=== PATIENT | male | born 1995 | race Caucasian/White ===

== ENCOUNTER 2022-02-20 06:38 | Emergency (ER) | payer MEDICAID, SELFPAY ==
[2022-02-20 06:49] VITALS: BP 90/60; PULSE 104; RESP 22; TEMP 37.3; O2SAT 100; BMI 20.5
[2022-02-20 07:27] LABS: Hematocrit 46.6 % (42.0-52.0); Hemoglobin 15.5 g/dl (14.0-18.0); Mean Corpuscular HGB Conc 33.3 g/dl (31.0-36.0); Mean Corpuscular Hemoglobin 28.7 pg (27.0-33.0); Mean Corpuscular Volume 86.1 fL (80.0-98.0); Mean Platelet Volume 9.6 fL (9.4-12.4); Platelet Count 187 X10*3/uL (160-400); Red Blood Count 5.41 X10*6/uL (4.60-5.80); White Blood Count 10.3 X10*3/uL (4.8-10.8)
[2022-02-20 07:50] LABS: Alanine Aminotransferase 11 U/L (0-40); Albumin Level 4.8 g/dL (3.5-5.0); Alkaline Phosphatase 88 U/L (39-117); Anion Gap 13 (12-20); Aspartate Amino Transferase 12 U/L (5-37); Bilirubin Total 0.5 mg/dL (0.0-1.0); Blood Urea Nitrogen 6 mg/dL (9-16); Calcium 9.5 mg/dL (8.4-10.2); Carbon Dioxide 28 mmol/L (22-29); Chloride 103 mmol/L (96-108); Creatinine Clr Calc Pharmacy 81.2; Estimated Glomerular Filt Rate > 60; Glucose Random 112 mg/dL (60-115); Lipase 17 U/L (8-78); Potassium 4.3 mmol/L (3.3-5.1); Sodium 140 mmol/L (135-145); Total Protein 7.4 g/dL (6.5-8.0)
[2022-02-20] MEDS: traMADoL HCL 50 MG TABLET PO (08:06)
--- NOTE | 2022-02-20 08:08 | ED_ITS ---
HPI - Back Pain/Injury General Chief Complaint: Abdominal Pain Stated Complaint: back pain; vomiting/food poision Time Seen by Provider: 02/20/22 07:58 Source: patient Mode of arrival: ambulatory Limitations: no limitations History of Present Illness HPI Narrative: Patient has a chronic back pain noticed low back pain for last few days no injury, no paresthesia. Also patient been vomiting since last night after eating burrito vomited 4 times at this time patient denies any significant nausea or diarrhea no significant abdominal pain Related Data Previous Rx's Medication Instructions Recorded tramadol 50 mg tablet 50 mg PO Q6H PRN pain #20 tabs 02/20/22 Allergies Allergy/AdvReac Type Severity Reaction Status Date / Time No Known Allergies Allergy Verified 02/20/22 06:54 Review of Systems Review of Systems: Yes all other systems are reviewed and are negative [facility] Social History Social History Advance Directives: No Advance Directives Information Provided: No Physical Exam Vital Signs: Vital Signs: Last Vital Signs Temp 99.1 F 02/20/22 06:49 Pulse 104 H 02/20/22 06:49 Resp 22 H 02/20/22 06:49 BP 90/60 02/20/22 06:49 Pulse Ox 100 02/20/22 06:49 O2 Del Method 02/20/22 06:49 BMI result Body Mass Index 20.5 Appearance: Alert. Oriented X3. No acute distress. Anxious ambulatory in steady gait ENT: Pharynx normal. Oral Mucosa moist Neck: Normal inspection. Neck supple. CVS: Normal heart rate and rhythm. Pulses normal. Respiratory: No respiratory distress. Equal air entry bilateral, no wheezing/rales/rhonchi Abdomen: Soft and nontender. Bowel sounds are present, no mass palpable, no CVA tenderness Skin: Skin warm and dry. Normal skin color. Normal skin turgor. back: Diffuse lumbar spine tenderness no focal tenderness SLR negative bilateral good range of movement Extremities: No lower extremity edema. No calf tenderness Neuro: Oriented X 3. No motor deficit. MDM - Back Pain/Injury MDM Narrative Medical decision making narrative: Patient has chronic back pain will discharge patient home on tramadol no signs of spinal cord involvement. Patient urine showed wbc's 10-14 with no bacteria nitrite negative patient denies any urinary symptoms advised patient to drink plenty of fluids pending further culture Lab Data Attestation: I reviewed the patient's lab results. Result diagrams: 02/20/22 07:20 02/20/22 07:20 Labs: Lab Results 02/20/22 02/20/22 02/20/22 Range/Units 07:20 07:20 08:32 WBC 10.3 (4.8-10.8) X10*3/uL RBC 5.41 (4.60-5.80) X10*6/uL Hgb 15.5 (14.0-18.0) g/dl Hct 46.6 (42.0-52.0) % MCV 86.1 (80.0-98.0) fL MCH 28.7 (27.0-33.0) pg MCHC 33.3 (31.0-36.0) g/dl RDW 12.0 (11.0-16.0) % Plt Count 187 (160-400) X10*3/uL MPV 9.6 (9.4-12.4) fL Absolute Nucleated RBC 0.000 (0.0-0.012) X10*3/uL Nucleated RBC % (auto) 0.0 (0.0-0.2) /100WBC Sodium 140 (135-145) mmol/L Potassium 4.3 (3.3-5.1) mmol/L Chloride 103 (96-108) mmol/L Carbon Dioxide 28 (22-29) mmol/L Anion Gap 13 (12-20) BUN 6 L (9-16) mg/dL Creatinine 1.07 (0.5-1.4) mg/dL Estim Creat Clear Calc 81.2 Estimated GFR > 60 Random Glucose 112 (60-115) mg/dL Calcium 9.5 (8.4-10.2) mg/dL Total Bilirubin 0.5 (0.0-1.0) mg/dL AST 12 (5-37) U/L ALT 11 (0-40) U/L Alkaline Phosphatase 88 (39-117) U/L Total Protein 7.4 (6.5-8.0) g/dL Albumin 4.8 (3.5-5.0) g/dL Lipase 17 (8-78) U/L Urine Color YELLOW Urine Appearance CLEAR Urine pH 6.0 (5.0-8.0) Ur Specific [place] <= 1.005 (1.005-1.025) Urine Protein NEG (NEG-TRACE) MG/DL Urine Glucose (UA) NEG (NEG) MG/DL Urine Ketones NEG (NEG) MG/DL Urine Blood NEG (NEG) Urine Nitrite NEG (NEG) Ur Leukocyte Esterase 1+ H (NEG) Urine RBC 0 (0) /HPF Urine WBC 10-14 H (0-4) /HPF Ur Squamous Epith Cells TRACE /LPF Urine Bacteria NONE /LPF COVID-19 (SHANA) (Negative) COVID-19 Clin Com 02/20/22 Range/Units 09:11 WBC (4.8-10.8) X10*3/uL RBC (4.60-5.80) X10*6/uL Hgb (14.0-18.0) g/dl Hct (42.0-52.0) % MCV (80.0-98.0) fL MCH (27.0-33.0) pg MCHC (31.0-36.0) g/dl RDW (11.0-16.0) % Plt Count (160-400) X10*3/uL MPV (9.4-12.4) fL Absolute Nucleated RBC (0.0-0.012) X10*3/uL Nucleated RBC % (auto) (0.0-0.2) /100WBC Sodium (135-145) mmol/L Potassium (3.3-5.1) mmol/L Chloride (96-108) mmol/L Carbon Dioxide (22-29) mmol/L Anion Gap (12-20) BUN (9-16) mg/dL Creatinine (0.5-1.4) mg/dL Estim Creat Clear Calc Estimated GFR Random Glucose (60-115) mg/dL Calcium (8.4-10.2) mg/dL Total Bilirubin (0.0-1.0) mg/dL AST (5-37) U/L ALT (0-40) U/L Alkaline Phosphatase (39-117) U/L Total Protein (6.5-8.0) g/dL Albumin (3.5-5.0) g/dL Lipase (8-78) U/L Urine Color Urine Appearance Urine pH (5.0-8.0) Ur Specific [place] (1.005-1.025) Urine Protein (NEG-TRACE) MG/DL Urine Glucose (UA) (NEG) MG/DL Urine Ketones (NEG) MG/DL Urine Blood (NEG) Urine Nitrite (NEG) Ur Leukocyte Esterase (NEG) Urine RBC (0) /HPF Urine WBC (0-4) /HPF Ur Squamous Epith Cells /LPF Urine Bacteria /LPF COVID-19 (SHANA) Positive A (Negative) COVID-19 Clin Com See Note Discharge Plan Discharge Clinical Impression: Back pain, COVID-19 Patient Disposition: Home, Self-Care Instructions: Chronic Back Pain (DC), COVID-19 (Coronavirus Disease 2019) (ED) Additional Instructions: Take pain medication as prescribed follow with PCP Report the ER if any urinary symptoms/fever Social distancing as advised Prescriptions: New tramadol 50 mg tablet 50 mg PO Q6H PRN (Reason: pain) Qty: 20 0RF Interventions: ED Discharge Assessment Last Done: 02/20/22 09:50 Discharge Date/Time: 02/20/22 09:50
[2022-02-20] MEDS: Ondansetron ODT 4 MG TAB.RAPDIS TRANSLINGU (08:27)
[2022-02-20 08:43] LABS: Appearance Urine CLEAR; Color Urine YELLOW; Glucose Urine UA NEG (NEG); Leukocyte Esterase Urine 1+ (NEG); Nitrite Urine NEG (NEG); Specific Gravity - Urine <= 1.005 (1.005-1.025); UACC Culture Trigger YES; Urine Blood NEG (NEG); Urine Ketones NEG (NEG); Urine Protein NEG (NEG-TRACE)
[2022-02-20] MEDS: Ketorolac Tromethamine 60 MG/2 ML VIAL IM (08:53)
[2022-02-20 08:59] LABS: RBC Urine 0 /HPF (0); Squamous Epithelial Cell Urine TRACE /LPF
[2022-02-20 09:25] LABS: COVID-19 Test Positive (Negative)
== END 2022-02-20 09:50 | disposition home or self-care (01) ==
PROVIDERS: Emergency Provider Internal Medicine
DX: U07.1 COVID-19 (principal); M54.50 Low back pain, unspecified
CPT/HCPCS: 36415; 80053; 81001; 83690; 85027; 87086; 87635; 96372; 99283; 99284; J1885

== ENCOUNTER 2024-05-07 08:01 | Emergency (ER) | payer SELFPAY ==
[2024-05-07 08:19] VITALS: BP 115/67; PULSE 75; RESP 16; TEMP 36.9; O2SAT 98; BMI 18.8
[2024-05-07 08:30] LABS: MANUAL DIFF FLAG NO
[2024-05-07 08:33] LABS: Basophils Absolute Auto 0.1 X10*3/uL (0.0-0.2); Basophils Percent Auto 0.8 % (0-2); Eosinophils Absolute Auto 0.1 X10*3/uL (0.0-0.4); Eosinophils Percent Auto 1.8 % (0-4); Hematocrit 45.1 % (42.0-52.0); Hemoglobin 15.3 g/dl (14.0-18.0); Imm Gran Abs Auto 0.01 X10*3/uL (0.00-0.03); Imm Gran Pct Auto 0.1 % (0.0-0.4); Lymphocytes Percent Auto 13.7 % (20-40); Mean Corpuscular HGB Conc 33.9 g/dl (31.0-36.0); Mean Corpuscular Hemoglobin 28.8 pg (27.0-33.0); Mean Corpuscular Volume 84.9 fL (80.0-98.0); Mean Platelet Volume 9.8 fL (9.4-12.4); Monocytes Percent Auto 14.6 % (2-11); Neutrophils Absolute Auto 4.9 x10*3/uL (2.0-8.3); Platelet Count 195 X10*3/uL (160-400); Red Blood Count 5.31 X10*6/uL (4.60-5.80); Red Cell Distribution Width 12.2 % (11.0-16.0); White Blood Count 7.1 X10*3/uL (4.8-10.8)
[2024-05-07 08:38] LABS: IDNOW Serial# 6674DD1D
[2024-05-07 08:39] LABS: COVID-19 Test Negative (Negative)
[2024-05-07 08:47] LABS: Alanine Aminotransferase 12 U/L (0-40); Albumin Level 4.4 g/dL (3.5-5.0); Alkaline Phosphatase 92 U/L (39-117); Anion Gap 11 (12-20); Aspartate Amino Transferase 18 U/L (5-37); Bilirubin Direct 0.2 mg/dL (0.0-0.5); Bilirubin Total 0.8 mg/dL (0.0-1.0); Blood Urea Nitrogen 11 mg/dL (9-16); Calcium 9.2 mg/dL (8.4-10.2); Carbon Dioxide 25 mmol/L (22-29); Chloride 109 mmol/L (96-108); Creatinine Clr Calc Pharmacy 101.3; Estimated Glomerular Filt Rate > 60; Glucose Random 88 mg/dL (60-115); Lipase 14 U/L (8-78); Potassium 3.8 mmol/L (3.3-5.1); Sodium 141 mmol/L (135-145); Total Protein 7.1 g/dL (6.5-8.0)
[2024-05-07 09:00] LABS: IDNOW Serial# 6674DD1D; Influenza A Negative (Negative); Influenza B2 Negative (Negative)
--- NOTE | 2024-05-07 09:02 | ED.NAVMDI ---
HPI - Nausea/Vomiting/Diarrhea General Chief complaint: Abdominal Pain Stated complaint: Vomiting/Body pains Time Seen by Provider: 05/07/24 08:43 Source: patient Mode of arrival: ambulatory Limitations: no limitations History of Present Illness ED Provider: LIZ HPI Narrative: 28 yo male with no sig PMH here with c/o 2 days of n/v and upper abdominal pain notes he feels weak and tired and today he was shaking. When he was throwing up his hands were shaking and he got nervous. Showed up to work today and his boss told him to get checked out. Denies travel, exposures, sick contacts. MD elicited complaint: nausea, vomiting and abdominal pain Onset (ago): day(s) (2) Description of vomiting: watery Associated nausea: Yes Associated abdominal pain: Yes Location of pain: epigastric Pain consistency: intermittent Severity: mild Quality: aching Exacerbating factors: eating Relieving factors: none Associated symptoms: loss of appetite, malaise and nausea/vomiting Related Data Previous Rx's ?Medication ?Instructions ?Recorded tramadol 50 mg tablet 50 mg PO Q6H PRN pain #20 tabs 02/20/22 ondansetron 4 mg disintegrating 4 mg PO Q8H PRN nausea and 05/07/24 tablet vomiting #20 tabs Allergies Allergy/AdvReac Type Severity Reaction Status Date / Time No Known Allergies Allergy Verified 05/07/24 08:22 Review of Systems Review of Systems: Constitutional : No Weight loss, No Fever, No Chills ENT/Mouth : No sore throat, No Rhinorrhea Eyes: No Swelling, No Redness Cardiovascular : No Chest Pain, No SOB, NoEdema Respiratory : No Cough, No Sputum, No Wheezing Gastrointestinal : Positive Nausea, Positive Vomiting, positive Diarrhea, positive abdominal Pain, No Hematochezia, No Melena Genitourinary : No Dysuria, No Urinary Frequency, No Hematuria, No Urgency Musculoskeletal : No joint pain, No Myalgias, No Joint Swelling Skin : No Skin Lesions, No rash Neuro : No Weakness, No Numbness, No Dizziness, No Headache Psych : No Anxiety/Panic, No Depression All other systems reviewed and are negative. Gastrointestinal: Gastrointestinal: Reports nausea PMFSH Past Medical History Attestation statement: The following information was validated with the patient. Source: old records reviewed Medical History (Updated 09/20/24 @ 09:45 by Tracey Henry DO) COVID-19 Social History Social History (Updated 05/07/24 @ 09:38 by Tracey Henry DO) Patient Tobacco Use Status: Tobacco use Unknown Advance Directives: No Advance Directives Information Provided: Yes Physical Exam Vital Signs: Vital Signs: Last Vital Signs Temp 98.5 F 05/07/24 08:19 Pulse 75 05/07/24 08:19 Resp 16 05/07/24 08:19 BP 115/67 05/07/24 08:19 Pulse Ox 98 05/07/24 08:19 O2 Del Method Room Air 05/07/24 08:19 BMI result Body Mass Index 18.8 Appearance: Alert. Oriented X3. No acute distress. Eyes: Pupils equal, round and reactive to light. ENT: Pharynx normal. Neck: Normal inspection. Neck supple. CVS: Normal heart rate and rhythm. Pulses normal. Respiratory: No respiratory distress. Breath sounds normal. Abdomen: Soft and nontender. Skin: Skin warm and dry. Normal skin color. Normal skin turgor. Extremities: No lower extremity edema. No calf ttp Neuro: Oriented X 3. No motor deficit. No sensory deficit. Medications Administered Generic Name Dose Route Start Last Admin Trade Name Freq PRN Reason Stop Dose Admin Sodium Chloride 1,000 mls @ 999 mls/hr 05/07/24 09:02 05/07/24 09:41 Ns IV 05/07/24 10:02 999 mls/hr .Q1H1M ONE Administration Discontinued Medications Generic Name Dose Route Start Last Admin Trade Name Freq PRN Reason Stop Dose Admin Famotidine 20 mg 05/07/24 09:02 05/07/24 09:41 Famotidine/Pf 20 Mg/2 Ml Vial IVPUSH 05/07/24 09:03 20 mg ONCE ONE Administration Ketorolac Tromethamine 15 mg 05/07/24 09:02 05/07/24 09:41 Ketorolac Tromethamine 15 Mg/Ml Vial IVPUSH 05/07/24 09:03 15 mg ONCE ONE Administration Ondansetron HCl 4 mg 05/07/24 09:02 05/07/24 09:41 Ondansetron Hcl 4 Mg/2 Ml Vial IVPUSH 05/07/24 09:03 4 mg ONCE ONE Administration Medical Decision Making Medical Decision Making MDM Narrative: 28 yo male with no sig PMH here with n/v and viral like illness has mild epigastric pain but no rebound or hernandez's sign. At this time basic labs, hydration and covid/strep swab ordered. IVF and supportive labs ordered. He is not toxic appearing. Differential Diagnosis Differential Diagnoses: The differential diagnosis associated with the presentation includes COVID, strep, viral panel, food toxicity Admission/Observation Consideration of admission/observation: Escalation of care including admission/observation considered feels better labs and VS reassuring Lab Data MDM Lab Attestation statement: I reviewed the patient's lab results. 05/07/24 08:27 05/07/24 08:27 Labs: Lab Results 05/07/24 05/07/24 Range/Units 08:14 08:27 WBC 7.1 (4.8-10.8) X10*3/uL RBC 5.31 (4.60-5.80) X10*6/uL Hgb 15.3 (14.0-18.0) g/dl Hct 45.1 (42.0-52.0) % MCV 84.9 (80.0-98.0) fL MCH 28.8 (27.0-33.0) pg MCHC 33.9 (31.0-36.0) g/dl RDW 12.2 (11.0-16.0) % Plt Count 195 (160-400) X10*3/uL MPV 9.8 (9.4-12.4) fL Immature Gran % (Auto) 0.1 (0.0-0.4) % Neut % (Auto) 69.0 (45-73) % Lymph % (Auto) 13.7 L (20-40) % [place] % (Auto) 14.6 H (2-11) % Eos % (Auto) 1.8 (0-4) % Baso % (Auto) 0.8 (0-2) % Lymph # (Auto) 1.0 L (1.2-4.9) X10*3/uL [place] # (Auto) 1.0 (0.1-1.2) X10*3/uL Eos # (Auto) 0.1 (0.0-0.4) X10*3/uL Baso # (Auto) 0.1 (0.0-0.2) X10*3/uL Abs Immat Gran (auto) 0.01 (0.00-0.03) X10*3/uL Absolute Neuts (auto) 4.9 (2.0-8.3) x10*3/uL Absolute Nucleated RBC 0.000 (0.0-0.012) X10*3/uL Nucleated RBC % (auto) 0.0 (0.0-0.2) /100WBC Sodium 141 (135-145) mmol/L Potassium 3.8 (3.3-5.1) mmol/L Chloride 109 H (96-108) mmol/L Carbon Dioxide 25 (22-29) mmol/L Anion Gap 11 L (12-20) BUN 11 (9-16) mg/dL Creatinine 0.77 (0.5-1.4) mg/dL Estim Creat Clear Calc 101.3 Estimated GFR > 60 Random Glucose 88 (60-115) mg/dL Calcium 9.2 (8.4-10.2) mg/dL Total Bilirubin 0.8 (0.0-1.0) mg/dL Direct Bilirubin 0.2 (0.0-0.5) mg/dL AST 18 (5-37) U/L ALT 12 (0-40) U/L Alkaline Phosphatase 92 (39-117) U/L Total Protein 7.1 (6.5-8.0) g/dL Albumin 4.4 (3.5-5.0) g/dL Lipase 14 (8-78) U/L COVID-19 (SHANA) Negative (Negative) COVID-19 Clin Com See Note Influenza Type A (LIZET) Negative (Negative) Influenza Type B (LIZET) Negative (Negative) Influenza A & B Note See Note Prescription Management I considered prescription management with: Other Discharge Plan Discharge Clinical Impression: Acute nausea with nonbilious vomiting, Acute viral syndrome Patient Disposition: Home, Self-Care Instructions: Acute Nausea and Vomiting (ED), Viral Syndrome (ED) Additional Instructions: labs reassuring, negative covid and flu negative strep bland diet for 2 days stay hydrated and drink plenty of water return for worsening symptoms or concerns. Prescriptions: New ondansetron 4 mg tablet,disintegrating 4 mg PO Q8H PRN (Reason: nausea and vomiting) Qty: 20 0RF No Action tramadol 50 mg tablet 50 mg PO Q6H PRN (Reason: pain) Qty: 20 0RF Stand Alone Forms: Work/School Release Print Language: Kittitian
[2024-05-07] MEDS: 0.9 % Sodium Chloride 1,000 ML 999 ML IV (09:41)
[2024-05-07] MEDS: Ketorolac Tromethamine 15 MG/ML VIAL IVPUSH (09:41)
[2024-05-07] MEDS: Famotidine/PF 20 MG/2 ML VIAL IVPUSH (09:41)
[2024-05-07] MEDS: ondansetron HCL 4 MG/2 ML VIAL IVPUSH (09:41)
[2024-05-07 10:08] LABS: IDNOW Serial# 08D9AD1C; Strep A Nucleic Acid Negative (Negative)
--- NOTE | 2024-05-07 10:52 | PC.NURSE ---
fluids have infused, patient reports feeling much better at this time s/p medication administration. PO challenging patient at this time
[2024-05-07 11:24] VITALS: BP 98/54; PULSE 68; RESP 14; TEMP 36.6; O2SAT 98
--- NOTE | 2024-05-07 11:25 | PC.NURSE ---
NO ACTIVE VOMITING AT TIME OF DISCHARGE. AGREEABLE WITH DISCHARGE PLAN
[2024-05-07 11:26] VITALS: BP 98/54; PULSE 68; RESP 14; TEMP 36.6; O2SAT 98
== END 2024-05-07 11:27 | disposition home or self-care (01) ==
PROVIDERS: Physician Assistant; Emergency Provider Emergency Medicine
DX: B34.9 Viral infection, unspecified (principal); R11.2 Nausea with vomiting, unspecified; M79.10 Myalgia, unspecified site; Z79.899 Other long term (current) drug therapy; Z11.52 Encounter for screening for COVID-19
CPT/HCPCS: 36415; 80048; 80076; 83690; 85025; 87502; 87635; 87651; 96361; 96374; 96375; 99283; 99284; J1885; J2405

== ENCOUNTER 2024-06-19 09:05 | Emergency (ER) | payer MEDICAID, SELFPAY ==
--- NOTE | ~2024-06-19 | CT_ITS ---
EXAMINATION: CT ABDOMEN AND PELVIS WITH CONTRAST CLINICAL INFORMATION: Abdominal pain, nausea and vomiting. COMPARISON: None available. TECHNIQUE: Multidetector volumetric images were obtained from the superior aspect of the liver through the pubic symphysis following administration 85 mL of Omnipaque 350 intravenous contrast. Sagittal and coronal reformatted images were obtained on the technologist's workstation. Oral contrast: No This CT examination was performed using dose optimization techniques as appropriate, variously including the following: *Automated exposure control *Adjustment of mA and/or kV according to patient size (this includes techniques or standardized protocols for targeted exams where dose is matched to indication/reason for exam; i.e. extremities or head) *Use of iterative reconstruction technique DLP: 251 mGy-cm FINDINGS: LUNG BASES: The visualized lung bases are unremarkable. LIVER, GALLBLADDER, AND BILIARY TREE: The liver is normal in size, shape, and attenuation. A few too small to characterize hypodensities, for example in the caudate lobe image 14 and posterior right hepatic lobe image 18, series 3 that are statistically in favor to represent cysts or hemangiomas in a patient of this age. No biliary ductal dilatation is present. The gallbladder is unremarkable with no evidence of radiopaque gallstones, gallbladder wall thickening, or obvious pericholecystic inflammatory changes. PANCREAS: Unremarkable. SPLEEN: Unremarkable. ADRENAL GLANDS: Unremarkable. KIDNEYS AND URETERS: The kidneys are normal in size, shape, and attenuation. No hydronephrosis, hydroureter, or calculi seen. No perinephric stranding. BLADDER: Unremarkable. GASTROINTESTINAL TRACT: The esophagus stomach and the small bowel are nondilated. The appendix is not well seen, though there are no regional inflammatory changes to suspect acute appendicitis. No pericolonic inflammatory changes. No evidence of bowel obstruction. ABDOMINAL WALL: No significant hernia is appreciated. LYMPH NODES: Limited evaluation due to paucity of intra-abdominal fat, within limitations no discrete adenopathy seen. VASCULAR: Normal caliber of the abdominal aorta. The main portal vein and SMV are patent. PELVIC VISCERA: Unremarkable. OSSEOUS STRUCTURES: No acute or aggressive appearing osseous findings. CT/CT abdomen pelvis w IV con IMPRESSION: No acute abdominal or pelvic abnormalities to explain the patient's symptoms. Electronically signed by: Kristine Purcell MD 06/19/2024 11:18 AM EDT
[2024-06-19 09:13] VITALS: BP 120/73; BP 122/64; PULSE 75; PULSE 77; RESP 21; TEMP 36.8; O2SAT 95; O2SAT 99; BMI 19.1
[2024-06-19 09:20] VITALS: BP 120/73; PULSE 75; RESP 21; TEMP 36.8; O2SAT 95
--- NOTE | 2024-06-19 09:27 | ED.GENADULT ---
HPI - General Adult General Chief complaint: Nausea/Vomiting/Diarrhea Stated complaint: ABD PAIN,N/V S/P MARIJUANA & CRACK USE T-1 PER EMS Time Seen by Provider: 06/19/24 09:25 Source: patient Mode of arrival: ambulatory Limitations: no limitations History of Present Illness ED Provider: Michelle SOLIMAN HPI narrative: 28-year-old male presents with nausea, vomiting, abdominal pain status post smoking crack mixed with marijuana last night around midnight he reports is the 1st time he did this. He reports he was also drinking. He reports he feels terrible. Denies recent sick contacts or different foods. Denies chest pain, shortness breath, fevers, chills, headache, vision changes, dizziness, weakness. He denies opiate use. Related Data Previous Rx's ?Medication ?Instructions ?Recorded tramadol 50 mg tablet 50 mg PO Q6H PRN pain #20 tabs 02/20/22 ondansetron 4 mg disintegrating 4 mg PO Q8H PRN nausea and 05/07/24 tablet vomiting #20 tabs ondansetron HCl 4 mg tablet 4 mg PO Q8H PRN nausea and 06/19/24 vomiting #14 tabs Allergies Allergy/AdvReac Type Severity Reaction Status Date / Time No Known Allergies Allergy Verified 06/19/24 09:20 Review of Systems Review of Systems: Yes all other systems are reviewed and are negative PMFSH Past Medical History Attestation statement: The following information was validated with the patient. Source: old records reviewed and nursing notes reviewed Medical History (Updated 06/19/24 @ 11:06 by LORRAINE Vogt) COVID-19 Social History Social History (Updated 05/07/24 @ 09:38 by Tracey Henry DO) Patient Tobacco Use Status: Tobacco use Unknown Smoked in Last 30 Days: Yes Use of substances other than those prescribed or required for medical reasons: Yes Substance Use Type: Crack/Cocaine and Marijuana Substance Use Frequency: Daily Substance Use Frequency Other:: Daily MJ use, first time using crack 06/18/24 Last Used Substance: Days (ago) Advance Directives: No Advance Directives Information Provided: Yes Do you have a plan to hurt others: No Plan Physical Exam ED Vital Signs: Vital Signs - 24 hr 06/19/24 09:13 06/19/24 09:20 06/19/24 10:20 Temperature 98.2 F 98.2 F 98.1 F Pulse Rate 75 75 73 Respiratory Rate 21 H 21 H 20 Blood Pressure 120/73 120/73 122/75 Pulse Oximetry 95 95 97 Oxygen Delivery Method Room Air Room Air Room Air BMI result Body Mass Index 19.1 vss Appearance: Alert.? Oriented X3.? No acute distress.? Head: Normocephalic, atraumatic, no step-offs or deformities Eyes: Pupils equal, round and reactive to light.? CVS: Normal heart rate and rhythm.? Pulses normal.? Respiratory: No respiratory distress.? Breath sounds normal.? Abdomen: Soft and diffuse tenderness.? Skin: Skin warm and dry.? Normal skin color.? Normal skin turgor.? Extremities: No lower extremity edema.? No calf ttp. 5/5 strength to bilateral upper and lower extremities Back: No midline tenderness, no C-spine tenderness, full range of motion, no CVA tenderness bilaterally Neuro: Oriented X 3.? No motor deficit.? No sensory deficit. CN 2-12 intact Course Reevaluation(s) Reevaluation #1: WBC 16.9 w/ left shift likely inflammatory from nausea, vomiting. Chemistry with no acute findings needing intervention. Normal lipase. UA without infection. Urine toxicology positive for cocaine, marijuana. Ethanol negative. Patient's CT abdomen and pelvis with no acute abdominal or pelvic abnormalities. Patient feeling better. He did report slight lightheadedness after receiving IV contrast however now he is feeling better. No longer nauseous. Will discharge home on Zofran. Not interested in detox. Not suicidal or homicidal . Educated patient on diagnosis and treatment plan, answered all question, patient verbalizes understanding. At this time patient will be discharged home, advised to return with new or worsening symptoms. Educated on worrisome signs and symptoms and when to return. At this time I feel comfortable discharge home. Time: 11:29 Medications Administered Discontinued Medications Generic Name Dose Route Start Last Admin Trade Name Deb PRN Reason Stop Dose Admin Iohexol 85 ml 06/19/24 10:37 06/19/24 10:39 Iohexol 350 Mg/Ml 100 Ml Infus..Btl IV 06/19/24 10:38 85 ml ONCE ONE Administration Ondansetron HCl 4 mg 06/19/24 09:26 06/19/24 10:29 Ondansetron Odt 4 Mg Tab.Angeldis TRANSLINGU 06/19/24 09:27 4 mg ONCE ONE Administration Medical Decision Making Medical Decision Making [facility] Narrative: 28-year-old male presents with nausea and vomiting status post using crack PE diffuse tenderness Hx and pe concerning for nausea and vomiting sp drug use. Unlikely acs, pe, pna, ards, metabolic derangments. Plan- labs, imaging, urine, ethanol Differential Diagnosis Differential Diagnoses: The differential diagnosis associated with the presentation includes (Hx and pe concerning for nausea and vomiting sp drug use. Unlikely acs, pe, pna, ards, metabolic derangments. ) Admission/Observation Consideration of admission/observation: Escalation of care including admission/observation considered Lab Data 06/19/24 09:29 06/19/24 09:29 Labs: Lab Results 06/19/24 06/19/24 Range/Units 09:29 10:19 WBC 16.9 H (4.8-10.8) X10*3/uL RBC 5.22 (4.60-5.80) X10*6/uL Hgb 15.0 (14.0-18.0) g/dl Hct 43.4 (42.0-52.0) % MCV 83.1 (80.0-98.0) fL MCH 28.7 (27.0-33.0) pg MCHC 34.6 (31.0-36.0) g/dl RDW 12.3 (11.0-16.0) % Plt Count 229 (160-400) X10*3/uL MPV 9.3 L (9.4-12.4) fL Immature Gran % (Auto) 0.3 (0.0-0.4) % Neut % (Auto) 88.8 H (45-73) % Lymph % (Auto) 4.4 L (20-40) % [place] % (Auto) 6.2 (2-11) % Eos % (Auto) 0.1 (0-4) % Baso % (Auto) 0.2 (0-2) % Lymph # (Auto) 0.8 L (1.2-4.9) X10*3/uL [place] # (Auto) 1.0 (0.1-1.2) X10*3/uL Eos # (Auto) 0.0 (0.0-0.4) X10*3/uL Baso # (Auto) 0.0 (0.0-0.2) X10*3/uL Abs Immat Gran (auto) 0.05 H (0.00-0.03) X10*3/uL Absolute Neuts (auto) 15.0 H (2.0-8.3) x10*3/uL Absolute Nucleated RBC 0.000 (0.0-0.012) X10*3/uL Nucleated RBC % (auto) 0.0 (0.0-0.2) /100WBC Sodium 141 (135-145) mmol/L Potassium 3.6 (3.3-5.1) mmol/L Chloride 107 (96-108) mmol/L Carbon Dioxide 26 (22-29) mmol/L Anion Gap 12 (12-20) BUN 7 L (9-16) mg/dL Creatinine 0.77 (0.5-1.4) mg/dL Estim Creat Clear Calc 103.1 Estimated GFR > 60 Random Glucose 120 H (60-115) mg/dL Calcium 9.9 D (8.4-10.2) mg/dL Magnesium 2.0 (1.6-2.6) mg/dL Total Bilirubin 0.6 (0.0-1.0) mg/dL AST 17 (5-37) U/L ALT 10 (0-40) U/L Alkaline Phosphatase 90 (39-117) U/L Total Protein 7.0 (6.5-8.0) g/dL Albumin 4.4 (3.5-5.0) g/dL Lipase 13 (8-78) U/L Urine Color Yellow Urine Appearance Clear Urine pH 7.0 (5.0-9.0) Ur Specific [place] 1.010 (1.005-1.025) Urine Protein Negative (Neg-Trace) mg/dL Urine Glucose (UA) Negative (Negative) mg/dL Urine Ketones Negative (Negative) mg/dL Urine Blood Negative (Negative) Urine Nitrite Negative (Negative) Ur Leukocyte Esterase Trace H (Negative) Urine RBC 0-2 (0-2) /HPF Urine WBC 0-5 (0-5) /HPF Ur Squamous Epith Cells 0-2 (0-2) /HPF Urine Bacteria None Seen (None Seen) Hyaline Casts 0-2 (0-2) /LPF Urine Opiates Screen Not Detected (Not Detect) Ur Buprenorphine Scrn Not Detected (Not Detect) ng/mL Ur Oxycodone Screen Not Detected (Not Detect) ng/mL Urine Methadone Screen Not Detected (Not Detect) ng/mL Urine Fentanyl Screen Not Detected (Not Detect) Ur Barbiturates Screen Not Detected (Not Detect) Ur Phencyclidine Scrn Not Detected (Not Detect) Ur Amphetamines Screen Not Detected (Not Detect) U Benzodiazepines Scrn Not Detected (Not Detect) Urine Cocaine Screen POSITIVE H (Not Detect) U Marijuana (THC) Screen POSITIVE H (Not Detect) Ethyl Alcohol < 10 mg/dL Discharge Plan Discharge Clinical Impression: Polysubstance abuse, Abdominal pain, Nausea & vomiting Patient Disposition: Home, Self-Care Instructions: Acute Nausea and Vomiting (ED), Abdominal Pain (ED), Polysubstance Abuse (ED) Additional Instructions: Take your medications as prescribed. If you were prescribed antibiotics today, it is important that you take your medication to their entirety, do not skip any doses, do not finish them early. Follow-up with your primary care provider this week. Return to the emergency department with new or worsening symptoms. Such as fevers, chills, chest pain, shortness of breath, nausea, vomiting, dizziness, headache, vision changes, lethargy In case of emergency call 911 CT/CT abdomen pelvis w IV con IMPRESSION: No acute abdominal or pelvic abnormalities to explain the patient's symptoms. Prescriptions: New ondansetron HCl 4 mg tablet 4 mg PO Q8H PRN (Reason: nausea and vomiting) Qty: 14 0RF No Action tramadol 50 mg tablet 50 mg PO Q6H PRN (Reason: pain) Qty: 20 0RF ondansetron 4 mg tablet,disintegrating 4 mg PO Q8H PRN (Reason: nausea and vomiting) Qty: 20 0RF Referrals: Physician,Unknown J [Primary Care Provider] - 2 days Stand Alone Forms: Work/School Release Print Language: Palestinian
[2024-06-19 09:33] LABS: MANUAL DIFF FLAG NO
[2024-06-19 09:34] LABS: Basophils Percent Auto 0.2 % (0-2); Eosinophils Percent Auto 0.1 % (0-4); Hematocrit 43.4 % (42.0-52.0); Imm Gran Abs Auto 0.05 X10*3/uL (0.00-0.03); Imm Gran Pct Auto 0.3 % (0.0-0.4); Lymphocytes Absolute Auto 0.8 X10*3/uL (1.2-4.9); Lymphocytes Percent Auto 4.4 % (20-40); Mean Corpuscular HGB Conc 34.6 g/dl (31.0-36.0); Mean Corpuscular Hemoglobin 28.7 pg (27.0-33.0); Mean Corpuscular Volume 83.1 fL (80.0-98.0); Mean Platelet Volume 9.3 fL (9.4-12.4); Monocytes Percent Auto 6.2 % (2-11); Neutrophils Percent Auto 88.8 % (45-73); Platelet Count 229 X10*3/uL (160-400); Red Blood Count 5.22 X10*6/uL (4.60-5.80); Red Cell Distribution Width 12.3 % (11.0-16.0); White Blood Count 16.9 X10*3/uL (4.8-10.8)
[2024-06-19 09:51] LABS: Alanine Aminotransferase 10 U/L (0-40); Albumin Level 4.4 g/dL (3.5-5.0); Alkaline Phosphatase 90 U/L (39-117); Anion Gap 12 (12-20); Aspartate Amino Transferase 17 U/L (5-37); Bilirubin Total 0.6 mg/dL (0.0-1.0); Blood Urea Nitrogen 7 mg/dL (9-16); Calcium 9.9 mg/dL (8.4-10.2); Carbon Dioxide 26 mmol/L (22-29); Chloride 107 mmol/L (96-108); Creatinine Clr Calc Pharmacy 103.1; Estimated Glomerular Filt Rate > 60; Glucose Random 120 mg/dL (60-115); Lipase 13 U/L (8-78); Potassium 3.6 mmol/L (3.3-5.1); Sodium 141 mmol/L (135-145)
[2024-06-19 09:56] LABS: Ethanol < 10 mg/dL
[2024-06-19 10:20] VITALS: BP 122/75; PULSE 73; RESP 20; TEMP 36.7; O2SAT 97
[2024-06-19 10:28] LABS: Appearance Urine Clear; Color Urine Yellow; Glucose Urine UA Negative (Negative); Leukocyte Esterase Urine Trace (Negative); Nitrite Urine Negative (Negative); UMIC TRIGGER UACC YES; Urine Blood Negative (Negative); Urine Ketones Negative (Negative); Urine Protein Negative (Neg-Trace)
[2024-06-19] MEDS: Ondansetron ODT 4 MG TAB.RAPDIS TRANSLINGU (10:29)
[2024-06-19 10:31] LABS: Bacteria Urine None Seen (None Seen); Hyaline Casts Urine 0-2 /LPF (0-2); RBC Urine 0-2 /HPF (0-2); Squamous Epithelial Cell Urine 0-2 /HPF (0-2); WBC Urine 0-5 /HPF (0-5)
--- NOTE | 2024-06-19 10:32 | PC.NURSE ---
Pt comes to ED today via EMS from home. C/o nausea and vomiting x1 day s/p 1st time crack use. Pt reports he uses MJ frequently, yesterday he mixed crack with his MJ and smoked it. Since then he has been experiencing nausea w/vomiting bile. He also c/o dehydration and severe muscle cramping. A&Ox3, VSS, afebrile. 20g placed to LAC Blood labs and urine spec completed; Pt to CT now Results pending.
[2024-06-19] MEDS: iohexoL 350 MG/ML 100 ML INFUS..BTL 85 ML IV (10:39)
[2024-06-19 10:58] LABS: Amphetamine Screen Urine Not Detected (Not Detect); Barbiturates, Urine Not Detected (Not Detect); Benzodiazepines Screen Urine Not Detected (Not Detect); Buprenorphine Scr Not Detected (Not Detect); Cannabinoid Screen Urine POSITIVE (Not Detect); Cocaine Screen Urine POSITIVE (Not Detect); Fentanyl, urine Not Detected (Not Detect); Methadone Screen, Urine Not Detected (Not Detect); Opiate Screen Urine Not Detected (Not Detect); Oxycodone Screen Urine Not Detected (Not Detect); Phencyclidine Screen Urine Not Detected (Not Detect)
[2024-06-19] MEDS: Ketorolac Tromethamine 15 MG/ML VIAL IVPUSH (11:40)
[2024-06-19 11:45] VITALS: BP 122/75; PULSE 73; RESP 20; TEMP 36.7; O2SAT 97
== END 2024-06-19 11:46 | disposition home or self-care (01) ==
PROVIDERS: Physician Assistant; Emergency Provider Emergency Medicine Emergency Medical Services
DX: F19.10 Other psychoactive substance abuse, uncomplicated (principal); R10.9 Unspecified abdominal pain; R11.2 Nausea with vomiting, unspecified; Z79.899 Other long term (current) drug therapy
CPT/HCPCS: 36415; 74177; 80053; 80307; 81001; 83690; 83735; 85025; 96374; 96375; 99284; J1885; Q9967

== ENCOUNTER 2024-08-23 21:29 | Emergency (ER) | payer MEDICAID, SELFPAY ==
[2024-08-23 21:45] VITALS: BP 122/76; PULSE 90; O2SAT 100
[2024-08-23 21:46] VITALS: BP 116/70; PULSE 91; RESP 25; TEMP 37.3; O2SAT 100; BMI 25.7
--- NOTE | 2024-08-23 21:48 | ED.GENADULT ---
HPI - General Adult General Chief complaint: General Medical Stated complaint: NEURO SYMPT: HEACHACHE DIZZY HAND CONTRACT, ECT Time Seen by Provider: 08/23/24 21:47 Source: patient Mode of arrival: EMS Limitations: no limitations History of Present Illness ED Provider: HPI narrative: patient has been having vomiting all day today comes here with contracted jaw and the hands feeling very anxious patient has a history of crack and marijuana use but denied any use today complaining of body spasm patient has also been coughing for last 1 week no other family member sick Related Data Previous Rx's ?Medication ?Instructions ?Recorded tramadol 50 mg tablet 50 mg PO Q6H PRN pain #20 tabs 02/20/22 ondansetron 4 mg disintegrating 4 mg PO Q8H PRN nausea and 05/07/24 tablet vomiting #20 tabs ondansetron HCl 4 mg tablet 4 mg PO Q8H PRN nausea and 06/19/24 vomiting #14 tabs benzonatate 200 mg capsule 200 mg PO TID PRN cough #30 caps 08/24/24 ondansetron 4 mg disintegrating 4 mg PO Q6-8H PRN nausea and 08/24/24 tablet vomiting #10 tabs Allergies Allergy/AdvReac Type Severity Reaction Status Date / Time No Known Allergies Allergy Verified 08/23/24 21:47 Review of Systems Review of Systems: Yes all other systems are reviewed and are negative [facility] Past Medical History Medical History COVID-19 Social History Social History Patient Tobacco Use Status: Tobacco use Unknown Substance Use Type: Crack/Cocaine and Marijuana Advance Directives: No Advance Directives Information Provided: No Do you have a plan to hurt others: No Plan Physical Exam ED Vital Signs: Vital Signs - 24 hr 08/23/24 21:46 08/24/24 00:19 Temperature 99.2 F 101.1 F H Pulse Rate 91 98 Respiratory Rate 25 H 20 Blood Pressure 116/70 104/57 L Pulse Oximetry 100 95 Oxygen Delivery Method Room Air Room Air BMI result Body Mass Index 25.7 Appearance: Alert. Oriented X3. anxious contacted hands Eyes: No pallor or ENT: Pharynx normal. Oral Mucosa moist Neck: Normal inspection. Neck supple. CVS: Normal heart rate and rhythm. Pulses normal. Respiratory: No respiratory distress. Equal air entry bilateral, no wheezing/rales/rhonchi Abdomen: Soft and nontender. Bowel sounds are present, no mass palpable, no CVA tenderness Skin: Skin warm and dry. Normal skin color. Normal skin turgor. Extremities: No lower extremity edema. No calf tenderness Neuro: Oriented X 3. No motor deficit. Medications Administered Discontinued Medications Generic Name Dose Route Start Last Admin Trade Name Freq PRN Reason Stop Dose Admin Sodium Chloride 1,000 mls @ 999 mls/hr 08/23/24 21:47 08/23/24 23:26 Ns IV 08/23/24 22:47 Infused .Q1H1M ONE Infusion Lorazepam 1 mg 08/23/24 22:45 08/23/24 22:48 Lorazepam 2 Mg/Ml Vial IVPUSH 08/23/24 22:46 1 mg STAT STA Administration Ondansetron HCl 4 mg 08/23/24 21:47 08/23/24 21:53 Ondansetron Hcl 4 Mg/2 Ml Vial IVPUSH 08/23/24 21:48 4 mg ONCE ONE Administration Prochlorperazine Edisylate 10 mg 08/23/24 22:45 08/23/24 22:48 Prochlorperazine Edisylate 10 Mg/2 Ml Vial IVPUSH 08/23/24 22:46 10 mg ONCE ONE Administration Medical Decision Making Medical Decision Making [facility] Narrative: Patient's influenza a with acute vomiting symptoms of influenza been there for last 1 week. Patient responded to IV fluids taking p.o. fluids discharge patient home advised the social distancing Lab Data [facility] Lab Attestation statement: I reviewed the patient's lab results. 08/23/24 21:58 08/23/24 21:58 Labs: Lab Results 08/23/24 08/23/24 Range/Units 21:58 22:27 WBC 6.1 (4.8-10.8) X10*3/uL RBC 5.20 (4.60-5.80) X10*6/uL Hgb 15.1 (14.0-18.0) g/dl Hct 43.7 (42.0-52.0) % MCV 84.0 (80.0-98.0) fL MCH 29.0 (27.0-33.0) pg MCHC 34.6 (31.0-36.0) g/dl RDW 12.1 (11.0-16.0) % Plt Count 185 (160-400) X10*3/uL MPV 9.6 (9.4-12.4) fL Immature Gran % (Auto) 0.2 (0.0-0.4) % Neut % (Auto) 73.4 H (45-73) % Lymph % (Auto) 4.9 L (20-40) % [place] % (Auto) 21.2 H (2-11) % Eos % (Auto) 0.0 (0-4) % Baso % (Auto) 0.3 (0-2) % Lymph # (Auto) 0.3 L (1.2-4.9) X10*3/uL [place] # (Auto) 1.3 H (0.1-1.2) X10*3/uL Eos # (Auto) 0.0 (0.0-0.4) X10*3/uL Baso # (Auto) 0.0 (0.0-0.2) X10*3/uL Abs Immat Gran (auto) 0.01 (0.00-0.03) X10*3/uL Absolute Neuts (auto) 4.5 (2.0-8.3) x10*3/uL Absolute Nucleated RBC 0.000 (0.0-0.012) X10*3/uL Nucleated RBC % (auto) 0.0 (0.0-0.2) /100WBC Smear Tech's Comments VERIFIED Sodium 140 (135-145) mmol/L Potassium 3.3 (3.3-5.1) mmol/L Chloride 109 H (96-108) mmol/L Carbon Dioxide 21 L (22-29) mmol/L Anion Gap 13 (12-20) BUN 9 (9-16) mg/dL Creatinine 0.93 (0.5-1.4) mg/dL Estim Creat Clear Calc 99.0 Estimated GFR > 60 Random Glucose 91 (60-115) mg/dL Calcium 8.6 D (8.4-10.2) mg/dL Magnesium 1.6 (1.6-2.6) mg/dL Total Bilirubin 0.3 (0.0-1.0) mg/dL AST 16 (5-37) U/L ALT 10 (0-40) U/L Alkaline Phosphatase 88 (39-117) U/L Total Protein 7.0 (6.5-8.0) g/dL Albumin 4.4 (3.5-5.0) g/dL Lipase 25 (8-78) U/L Influenza Type A (PCR) POSITIVE A (Negative) Influenza Type B (PCR) NEGATIVE (Negative) RSV RNA Qual (PCR) NEGATIVE (Negative) SARS-CoV-2 RNA (RT-PCR) NEGATIVE (Negative) Discharge Plan Discharge Clinical Impression: Gastroenteritis, Influenza A Patient Disposition: Home, Self-Care Instructions: Influenza (ED), Acute Nausea and Vomiting (ED) Additional Instructions: Drink plenty of fluids Medicine for nausea/vomiting as prescribed Cough drops as prescribed Follow with your PCP Prescriptions: New benzonatate 200 mg capsule 200 mg PO TID PRN (Reason: cough) Qty: 30 0RF ondansetron 4 mg tablet,disintegrating 4 mg PO Q6-8H PRN (Reason: nausea and vomiting) Qty: 10 0RF No Action tramadol 50 mg tablet 50 mg PO Q6H PRN (Reason: pain) Qty: 20 0RF ondansetron 4 mg tablet,disintegrating 4 mg PO Q8H PRN (Reason: nausea and vomiting) Qty: 20 0RF ondansetron HCl 4 mg tablet 4 mg PO Q8H PRN (Reason: nausea and vomiting) Qty: 14 0RF Print Language: Ivorian
[2024-08-23] MEDS: ondansetron HCL 4 MG/2 ML VIAL IVPUSH (21:53)
[2024-08-23] MEDS: 0.9 % Sodium Chloride 1,000 ML 999 ML IV (21:53)
[2024-08-23 22:03] LABS: Basophils Percent Auto 0.3 % (0-2); Hematocrit 43.7 % (42.0-52.0); Hemoglobin 15.1 g/dl (14.0-18.0); Imm Gran Abs Auto 0.01 X10*3/uL (0.00-0.03); Imm Gran Pct Auto 0.2 % (0.0-0.4); Lymphocytes Absolute Auto 0.3 X10*3/uL (1.2-4.9); Lymphocytes Percent Auto 4.9 % (20-40); MANUAL DIFF FLAG SCAN; Mean Corpuscular HGB Conc 34.6 g/dl (31.0-36.0); Mean Platelet Volume 9.6 fL (9.4-12.4); Monocytes Absolute Auto 1.3 X10*3/uL (0.1-1.2); Monocytes Percent Auto 21.2 % (2-11); Neutrophils Absolute Auto 4.5 x10*3/uL (2.0-8.3); Neutrophils Percent Auto 73.4 % (45-73); Platelet Count 185 X10*3/uL (160-400); Red Cell Distribution Width 12.1 % (11.0-16.0); SCAN SMEAR FLAG 1; White Blood Count 6.1 X10*3/uL (4.8-10.8)
--- NOTE | 2024-08-23 22:18 | PC.NURSE ---
pt biba from home a&ox4, respirations even and unlabored. pt reporting onset of nausea, vomiting, shortness of breath, chest pain and contractors of the hand and jaw. pt denies any sick contacts. pt noted to have high respirations of 25. vss. 18g placed in left ac by ems. provider at bedside, fluids and zofran administered at this time.
[2024-08-23 22:19] LABS: Alanine Aminotransferase 10 U/L (0-40); Albumin Level 4.4 g/dL (3.5-5.0); Alkaline Phosphatase 88 U/L (39-117); Anion Gap 13 (12-20); Aspartate Amino Transferase 16 U/L (5-37); Bilirubin Total 0.3 mg/dL (0.0-1.0); Blood Urea Nitrogen 9 mg/dL (9-16); Calcium 8.6 mg/dL (8.4-10.2); Carbon Dioxide 21 mmol/L (22-29); Chloride 109 mmol/L (96-108); Estimated Glomerular Filt Rate > 60; Glucose Random 91 mg/dL (60-115); Lipase 25 U/L (8-78); Magnesium 1.6 mg/dL (1.6-2.6); Potassium 3.3 mmol/L (3.3-5.1); Sodium 140 mmol/L (135-145)
[2024-08-23 22:36] LABS: SLIDE REVIEW VERIFIED
[2024-08-23] MEDS: Prochlorperazine Edisylate 10 MG/2 ML VIAL IVPUSH (22:48)
[2024-08-23] MEDS: LORazepam 2 MG/ML VIAL 1 MG IVPUSH (22:48)
[2024-08-23 23:10] LABS: Influenza A PCR POSITIVE (Negative); Influenza B PCR NEGATIVE (Negative); Resp Syncy Virus RNA Qual PCR NEGATIVE (Negative); SARS COV2 PCR INHOUSE NEGATIVE (Negative)
[2024-08-24 00:19] VITALS: BP 104/57; PULSE 98; RESP 20; TEMP 38.4; O2SAT 95
[2024-08-24] MEDS: Benzonatate 100 MG CAPSULE 200 MG PO (01:35)
[2024-08-24 01:41] VITALS: BP 90/53; PULSE 84; RESP 18; TEMP 37.6; O2SAT 98
[2024-08-24 01:46] VITALS: BP 90/53; PULSE 84; RESP 18; TEMP 37.6; O2SAT 98
== END 2024-08-24 01:47 | disposition home or self-care (01) ==
PROVIDERS: Emergency Provider Internal Medicine
DX: J10.1 Influenza due to other identified influenza virus with other respiratory manifestations (principal); K52.9 Noninfective gastroenteritis and colitis, unspecified; R05.9 Cough, unspecified; Z03.818 Encounter for observation for suspected exposure to other biological agents ruled out
CPT/HCPCS: 0241U; 36415; 80053; 83690; 83735; 85025; 96361; 96374; 96375; 99284; J0737; J2060; J2405

== ENCOUNTER 2025-01-24 18:15 | Emergency (ER) | payer MEDICAID, SELFPAY ==
[2025-01-24 18:35] VITALS: BP 101/59; PULSE 85; RESP 16; TEMP 36.9; O2SAT 98; BMI 18.9
[2025-01-24 18:46] VITALS: BP 105/61; PULSE 84; RESP 16; O2SAT 99
--- NOTE | 2025-01-24 18:50 | PC.NURSE ---
Patient presents after multiple life stressors in which she he found out that his live-in girlfriend was cheating on him. Vague SI statement made with no plan. Alert and oriented but sad. Respirations even and non-labored. Abdomen soft, non-tender with positive bowel sounds. Positive pedal pulses with no edema.
[2025-01-24 18:52] LABS: Basophils Percent Auto 0.2 % (0-2); Hematocrit 42.1 % (42.0-52.0); Hemoglobin 14.4 g/dl (14.0-18.0); Imm Gran Abs Auto 0.03 X10*3/uL (0.00-0.03); Imm Gran Pct Auto 0.2 % (0.0-0.4); Lymphocytes Absolute Auto 0.5 X10*3/uL (1.2-4.9); Lymphocytes Percent Auto 4.2 % (20-40); MANUAL DIFF FLAG SCAN; Mean Corpuscular HGB Conc 34.2 g/dl (31.0-36.0); Mean Corpuscular Hemoglobin 28.9 pg (27.0-33.0); Mean Corpuscular Volume 84.4 fL (80.0-98.0); Mean Platelet Volume 9.7 fL (9.4-12.4); Monocytes Absolute Auto 0.3 X10*3/uL (0.1-1.2); Monocytes Percent Auto 2.7 % (2-11); Neutrophils Absolute Auto 11.5 x10*3/uL (2.0-8.3); Neutrophils Percent Auto 92.7 % (45-73); Platelet Count 228 X10*3/uL (160-400); Red Blood Count 4.99 X10*6/uL (4.60-5.80); Red Cell Distribution Width 12.1 % (11.0-16.0); SCAN SMEAR FLAG 1; White Blood Count 12.4 X10*3/uL (4.8-10.8)
[2025-01-24 19:02] LABS: Alanine Aminotransferase 11 U/L (0-40); Albumin Level 4.7 g/dL (3.5-5.0); Alkaline Phosphatase 91 U/L (39-117); Anion Gap 12 (12-20); Aspartate Amino Transferase 23 U/L (5-37); Bilirubin Total 0.4 mg/dL (0.0-1.0); Blood Urea Nitrogen 8 mg/dL (9-16); Calcium 9.4 mg/dL (8.4-10.2); Carbon Dioxide 26 mmol/L (22-29); Chloride 109 mmol/L (96-108); Creatinine Clr Calc Pharmacy 93.5; Estimated Glomerular Filt Rate > 60; Ethanol < 10 mg/dL; Glucose Random 69 mg/dL (60-115); Lipase 11 U/L (8-78); Magnesium 1.9 mg/dL (1.6-2.6); Sodium 143 mmol/L (135-145)
[2025-01-24 19:03] LABS: Acetaminophen LAB < 3 mcg/mL (<30); Salicylate < 5.0 mg/dL (15-30)
[2025-01-24 19:26] LABS: SLIDE REVIEW VERIFIED
[2025-01-24 19:39] LABS: Appearance Urine Clear; Color Urine Yellow; Glucose Urine UA 500 mg/dL (Negative); Leukocyte Esterase Urine Small (1+) (Negative); Nitrite Urine Negative (Negative); Specific Gravity - Urine 1.025 (1.005-1.025); UMIC TRIGGER UA YES; Urine Blood Negative (Negative); Urine Ketones 15 mg/dL (Negative); Urine Protein 30 (1+) mg/dL (Neg-Trace)
[2025-01-24 19:46] LABS: Bacteria Urine None Seen (None Seen); RBC Urine 0-2 /HPF (0-2); WBC Urine 21-50 /HPF (0-5)
[2025-01-24 19:48] LABS: Amphetamine Screen Urine Not Detected (Not Detect); Barbiturates, Urine Not Detected (Not Detect); Benzodiazepines Screen Urine Not Detected (Not Detect); Buprenorphine Scr Not Detected (Not Detect); Cannabinoid Screen Urine POSITIVE (Not Detect); Cocaine Screen Urine POSITIVE (Not Detect); Fentanyl, urine Not Detected (Not Detect); Methadone Screen, Urine Not Detected (Not Detect); Opiate Screen Urine Not Detected (Not Detect); Oxycodone Screen Urine Not Detected (Not Detect); Phencyclidine Screen Urine Not Detected (Not Detect)
[2025-01-24] MEDS: Nicotine Polacrilex Lozenge 4 MG LOZENGE BUCCAL (21:40)
[2025-01-24] MEDS: LORazepam 1 MG TABLET 2 MG PO (22:14)
--- NOTE | 2025-01-25 01:55 | ED.PSYCH ---
HPI - Psych General Chief Complaint: Behavioral Concerns Stated Complaint: si with intent, cut on L wrist Time Seen by Provider: 01/24/25 18:25 Source: patient Limitations: no limitations History of Present Illness ED Provider: Maru Whittaker PA-C HPI Narrative: 29-year-old male presents with SI. Patient has intention to slit his wrist, he has a superficial cut over the left wrist. Patient states he has numerous psychosocial stressors, he just discovered that his significant other was involved in another relationship. Related Data Home Medications ?Medication ?Instructions ?Recorded ?Confirmed No Known Home Meds 01/24/25 01/24/25 Allergies Allergy/AdvReac Type Severity Reaction Status Date / Time No Known Allergies Allergy Verified 01/24/25 18:38 Review of Systems Review of Systems: Yes all other systems are reviewed and are negative Constitutional: Constitutional: Denies fatigue and Denies fever(s) Cardiovascular: Cardiovascular: Denies chest pain and Denies dyspnea Respiratory: Respiratory: Denies dyspnea Endocrine: Endocrine: Denies fatigue PMFSH Past Medical History Attestation statement: The following information was validated with the patient. Medical History COVID-19 Social History Social History Patient Tobacco Use Status: Tobacco use Unknown Smoked in Last 30 Days: Yes Substance Use Type: Marijuana Advance Directives: No Advance Directives Information Provided: No Physical Exam Vital Signs: Vital Signs: Last Vital Signs Temp 98.3 F 01/25/25 06:43 Pulse 72 01/25/25 06:43 Resp 17 01/25/25 06:43 BP 100/64 01/25/25 06:43 Pulse Ox 98 01/25/25 06:43 O2 Del Method Room Air 01/25/25 06:43 BMI result Body Mass Index 18.9 Const: Other: Alert well-appearing Orientation/consciousness: patient oriented x3 Resp: Effort & Inspection: normal respiratory effort Cardio: Other: Normal peripheral perfusion Skin: Other: Warm dry no rash Neuro: General: patient oriented x3, gait normal, no focal motor deficits and CN's II-XI intact bilaterally Psych: Other: Calm cooperative Course Reevaluation(s) Reevaluation #1: Speaking with the care team, the patient will be a respite bed search Reevaluation #2: Time: 04:03 Date: 01/25/25 Provider: LORRAINE Up Patient in physician observation for psychiatric evaluation.? No acute events reported overnight. No current complaints. VS stable.? Patient is in bed search status/pending CARE team evaluation. Will continue to monitor. Reevaluation #3: Time: 06:17 Date: 01/25/25 Provider: Micky Hayes MD Patient in physician observation for psychiatric evaluation.? Patient has been in the emergency department for 28 hours. No acute events reported overnight. No current complaints. VS stable.? Patient has been evaluated by the care team and disposition is respite bed search. Will continue to monitor. Additional Reevaluation(s): Time: 10:19 Date: 01/25/25 Provider: Micky Hayes MD Physician observation ended at 10:19 hours. Patient has been cleared for discharge by the CARE team and is going to be discharged home as opposed to go to a respite. Medications Administered Generic Name Dose Route Start Last Admin Trade Name Freq PRN Reason Stop Dose Admin Nicotine Polacrilex 4 mg 01/24/25 21:30 01/25/25 10:06 Nicotine Polacrilex Lozenge 4 Mg Lozenge BUCCAL 4 mg Q2H PRN Administration Nicotine Cravings Discontinued Medications Generic Name Dose Route Start Last Admin Trade Name Freq PRN Reason Stop Dose Admin Lorazepam 2 mg 01/24/25 22:10 01/24/25 22:14 Lorazepam 1 Mg Tablet PO 01/24/25 22:11 2 mg ONCE ONE Administration Medical Decision Making Medical Decision Making MDM Narrative: 29-year-old male presents with SI. Patient has intention to slit his wrist, he has a superficial cut over the left wrist. Patient states he has numerous psychosocial stressors, he just discovered that his significant other was involved in another relationship. No chronic issues History: Per patient I have considered the following differential diagnoses: SI, HI, decompensated psychiatric illness, drug/alcohol intoxication Plan: We will be screening basic labs, serum ethanol and drug screen, we will place a care team consult I have independently reviewed the following tests: Labs: Slight leukocytosis, not anemic, no electrolyte abnormality ethanol negative, drug screen positive for cocaine and marijuana Lab Data 01/24/25 18:41 01/24/25 18:41 Labs: Lab Results 01/24/25 01/24/25 Range/Units 18:41 19:28 WBC 12.4 H (4.8-10.8) X10*3/uL RBC 4.99 (4.60-5.80) X10*6/uL Hgb 14.4 (14.0-18.0) g/dl Hct 42.1 (42.0-52.0) % MCV 84.4 (80.0-98.0) fL MCH 28.9 (27.0-33.0) pg MCHC 34.2 (31.0-36.0) g/dl RDW 12.1 (11.0-16.0) % Plt Count 228 (160-400) X10*3/uL MPV 9.7 (9.4-12.4) fL Immature Gran % (Auto) 0.2 (0.0-0.4) % Neut % (Auto) 92.7 H (45-73) % Lymph % (Auto) 4.2 L (20-40) % [place] % (Auto) 2.7 (2-11) % Eos % (Auto) 0.0 (0-4) % Baso % (Auto) 0.2 (0-2) % Lymph # (Auto) 0.5 L (1.2-4.9) X10*3/uL [place] # (Auto) 0.3 (0.1-1.2) X10*3/uL Eos # (Auto) 0.0 (0.0-0.4) X10*3/uL Baso # (Auto) 0.0 (0.0-0.2) X10*3/uL Abs Immat Gran (auto) 0.03 (0.00-0.03) X10*3/uL Absolute Neuts (auto) 11.5 H (2.0-8.3) x10*3/uL Absolute Nucleated RBC 0.000 (0.0-0.012) X10*3/uL Nucleated RBC % (auto) 0.0 (0.0-0.2) /100WBC Smear Tech's Comments VERIFIED Sodium 143 (135-145) mmol/L Potassium 4.0 D (3.3-5.1) mmol/L Chloride 109 H (96-108) mmol/L Carbon Dioxide 26 (22-29) mmol/L Anion Gap 12 (12-20) BUN 8 L (9-16) mg/dL Creatinine 0.83 (0.5-1.4) mg/dL Estim Creat Clear Calc 93.5 Estimated GFR > 60 Random Glucose 69 (60-115) mg/dL Calcium 9.4 D (8.4-10.2) mg/dL Magnesium 1.9 (1.6-2.6) mg/dL Total Bilirubin 0.4 (0.0-1.0) mg/dL AST 23 (5-37) U/L ALT 11 (0-40) U/L Alkaline Phosphatase 91 (39-117) U/L Total Protein 7.0 (6.5-8.0) g/dL Albumin 4.7 (3.5-5.0) g/dL Lipase 11 (8-78) U/L Urine Color Yellow Urine Appearance Clear Urine pH 6.0 (5.0-9.0) Ur Specific [place] 1.025 (1.005-1.025) Urine Protein 30 (1+) H (Neg-Trace) mg/dL Urine Glucose (UA) 500 H (Negative) mg/dL Urine Ketones 15 (Negative) mg/dL Urine Blood Negative (Negative) Urine Nitrite Negative (Negative) Ur Leukocyte Esterase Small (1+) H (Negative) Urine RBC 0-2 (0-2) /HPF Urine WBC 21-50 H (0-5) /HPF Ur Squamous Epith Cells 3-5 (0-2) /HPF Urine Bacteria None Seen (None Seen) Hyaline Casts 3-5 (0-2) /LPF Salicylates < 5.0 L (15-30) mg/dL Urine Opiates Screen Not Detected (Not Detect) Ur Buprenorphine Scrn Not Detected (Not Detect) ng/mL Ur Oxycodone Screen Not Detected (Not Detect) ng/mL Urine Methadone Screen Not Detected (Not Detect) ng/mL Urine Fentanyl Screen Not Detected (Not Detect) Acetaminophen < 3 (<30) mcg/mL Ur Barbiturates Screen Not Detected (Not Detect) Ur Phencyclidine Scrn Not Detected (Not Detect) Ur Amphetamines Screen Not Detected (Not Detect) U Benzodiazepines Scrn Not Detected (Not Detect) Urine Cocaine Screen POSITIVE H (Not Detect) U Marijuana (THC) Screen POSITIVE H (Not Detect) Ethyl Alcohol < 10 mg/dL Discharge Plan Discharge Clinical Impression: Suicidal ideation Patient Disposition: Home, Self-Care Additional Instructions: Please follow the care team instructions. Continue to make your medications as prescribed Follow-up with your doctor in 2 days.Please return to the emergency department if your symptoms get worse or if you develop any symptoms that are concerning to you. You were seen in our Emergency Department today for treatment of a behavioral health issue. It is important after your visit that you follow up with either your behavioral health provider or a primary care doctor within 7 days.? If you have trouble finding a therapist you can reach out to [address] [phone] The National Suicide and Crisis Lifeline can be reached 7 days a week 24 hours a day.? Call 988 to speak with someone.? Return for any worsening symptoms or concerns such as thoughts of self harm or harm to others. Please call 911 if you feel your mental health is worsening.? Prescriptions: No Action No Known Home Meds Print Language: Maori
[2025-01-25 06:43] VITALS: BP 100/64; PULSE 72; RESP 17; TEMP 36.8; O2SAT 98
--- NOTE | 2025-01-25 07:17 | PC.NURSE ---
29-year-old male presents with SI. Patient has intention to slit his wrist, he has a superficial cut over the left wrist. Patient states he has numerous psychosocial stressors, he just discovered that his significant other was involved in another relationship. Tox screen positive for marijuana and cocaine. Patient resting comfortably at this time. Respirations even and non-labored. Plan for transition to a respite bed.
--- NOTE | 2025-01-25 08:55 | MHC.CARE ---
Called [facility] to follow up on the [facility] referral sent for this pt. [facility] reports that they have no adult beds available today.
--- NOTE | 2025-01-25 09:38 | MHC.CARE ---
Pt's original disposition was for [facility] however [facility] do not have open beds. Pt declined to be referred and F/U in the community and advocated for D/C. There is no imminent risk and Pt denies SI, HI, and A/V/H. Pt will be referred to OP services at [facility].
--- NOTE | 2025-01-25 10:00 | MHC.EDTECH ---
patient ambulated to bathroom, to shower,AM care done RN aware
[2025-01-25] MEDS: Nicotine Polacrilex Lozenge 4 MG LOZENGE BUCCAL (10:06)
[2025-01-25 10:34] VITALS: BP 100/64; PULSE 72; RESP 17; TEMP 36.8; O2SAT 98
--- NOTE | 2025-01-25 15:06 | MHC.CARE ---
Referral to [facility] complete
== END 2025-01-25 10:49 | disposition home or self-care (01) ==
PROVIDERS: Physician Assistant Medical; Emergency Provider Internal Medicine
DX: S61.512A Laceration without foreign body of left wrist, initial encounter (principal); R45.851 Suicidal ideations; F43.9 Reaction to severe stress, unspecified; X78.1XXA Intentional self-harm by knife, initial encounter; Y93.9 Activity, unspecified; Y92.9 Unspecified place or not applicable; Y99.8 Other external cause status; Z51.81 Encounter for therapeutic drug level monitoring; Z79.899 Other long term (current) drug therapy
CPT/HCPCS: 36415; 80053; 80143; 80179; 80307; 81001; 83690; 83735; 85025; 99284; S9485

== ENCOUNTER 2025-03-28 11:20 | Emergency (ER) | payer MEDICAID, SELFPAY ==
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
[2025-03-28 12:16] VITALS: BP 128/58; PULSE 82; RESP 18; TEMP 36.7; O2SAT 97; BMI 20.4
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
[2025-03-28 17:08] VITALS: BP 118/84; PULSE 75; RESP 16; TEMP 36.8; O2SAT 97
--- OUTSIDE RECORDS SUMMARY | 2025-03-28 17:14 | XMS_ITS | Clinical Summary ---
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 Name Role Phone Unavailable Primary Care Provider Unavailabl e Social History Tobacco Use Types Packs/Day Years Used Date Smoking Tobacco: Never Assessed Sex and Gender Information Value Date Recorded Sex Assigned at Not on file Legal Sex Male 11:30 AM EST Gender Identity Not on file Sexual Orientation Not on file Plan of Treatment Health Maintenance Due Date Last Done Comments Depression Screening 1996 HIV Screening 1996 SDOH Screening 1996 Disability Screening 1996 Alcohol/Substance Use Screening 2008 Tobacco Screening 2008 Family Planning (PISQ) 2011 HPV Vaccines (1 - Male 3-dos e series) 2011 Hepatitis C Screening 2014 DTaP/Tdap/Td Vaccines (1 - Tdap) 2015 Hepatitis B Vaccines (1 of 3 - 19+ 3-dose series) 2015 COVID-19 Vaccine (1 - 2023-2 5 season) 2024 Influenza Vaccine (#1) 2025 Zoster Vaccines (1 of 2) 2046 RSV Patients and Pa tients Aged 60 years or older (1 - 1-dose 75+ series) 2071 HIB Vaccines Aged Out No longer eligi ble based on patient's age to complete this topic Hepatitis A Vaccines Aged Out No long er eligible based on patient's age to complete this topic IPV Vaccines Aged Out No longer eligi ble based on patient's age to complete this topic Meningococcal B Vaccine Aged Out No l onger eligible based on patient's age to complete this topic Meningococcal Vaccine Aged Out No atiya fidel eligible based on patient's age to complete this topic Pneumococcal Vaccine: Pediat rics (0 to 5 Years) and At-Risk Patients (6 to 49) Years Aged Out No longer eligible b ased on patient's age to complete this topic RSV under 20 months Aged Out No longe r eligible based on patient's age to complete this topic Rotavirus Vaccines Aged Out No longer eligible based on patient's age to complete this topic
[2025-03-28 18:51] VITALS: BP 118/84; PULSE 75; RESP 16; TEMP 36.8; O2SAT 97
== END 2025-03-28 18:51 | disposition home or self-care (01) ==
PROVIDERS: Emergency Provider Emergency Medicine
DX: S62.002A Unspecified fracture of navicular [scaphoid] bone of left wrist, initial encounter for closed fracture (principal); V29.888A Rider (driver) (passenger) of other motorcycle injured in other specified transport accidents, initial encounter; L03.818 Cellulitis of other sites; Y92.410 Unspecified street and highway as the place of occurrence of the external cause; Y93.89 Activity, other specified; Y99.8 Other external cause status
CPT/HCPCS: 29125; 73060; 73090; 73130; 96372; 99283; 99284; J1885

== ENCOUNTER → 2025-03-28 12:22 | Outpatient (BNV) | payer MEDICAID, SELFPAY | PROVIDERS: Visit Provider Radiology Diagnostic Radiology | DX: M79.642 Pain in left hand (principal); M79.602 Pain in left arm | CPT/HCPCS: 73060; 73090; 73130 ==

== ENCOUNTER 2025-04-01 18:09 | Emergency (ER) | payer MEDICAID, SELFPAY ==
--- NOTE | 2025-04-01 19:05 | PC.NURSE ---
public employment mediator called the pt to triage when friend was noted to laugh and say oh wow, we were just about to leave and go to [facility] . This RN provided introductions and explained plan for triage at this time. Friend/visitor asked if it would be quick before the patient is seen and RN made him aware that a time frame could not be given at this time as the way patient's are pulled back and assigned a room based on aquity not always length of stay/time in the department. The pt was A&Ox3, conversing freely and well appearing without distress noted. He was noted to his a LUE splint in place, pt declined RN's attempts to complete triage and/or assess the hand, obtain vitals. Pt stated that he was going to [facility]
--- NOTE | 2025-04-01 19:07 | ED.GENADULT ---
HPI - General Adult General Stated complaint: received call to change cast on L arm Related Data Previous Rx's ?Medication ?Instructions ?Recorded amoxicillin 875 mg-potassium 1 tab PO BID 7 days #14 tabs 03/28/25 clavulanate 125 mg tablet Allergies Allergy/AdvReac Type Severity Reaction Status Date / Time No Known Allergies Allergy Verified 03/28/25 12:20 PMFSH Past Medical History Medical History COVID-19 Social History Social History Patient Tobacco Use Status: Tobacco use Unknown Substance Use Type: Marijuana Course Course Course Narrative: -This patient was pulled into triage by our triage nurse. He reports that he was sent here to have his splint change on his left upper extremity. Before were able to complete the triage he states he wants to leave and go to [facility] for further care. Refused all additional care. Patient was alert and orientedx3, walking with a steady gait. Discharge Plan Discharge Clinical Impression: Encounter for cast change Patient Disposition: Left W/O Completing Treatment Prescriptions: No Action amoxicillin-pot clavulanate 875-125 mg tablet 1 tab PO BID 7 Days Qty: 14 0RF
--- OUTSIDE RECORDS SUMMARY | 2025-04-01 20:04 | XMS_ITS | Clinical Summary ---
Author Organization [employer] Address [address] [place] [address] Care Team Providers Care Principal Statistical Scientist Name Role Phone Unavailable Primary Care Provider [...]
== END 2025-04-01 20:02 | disposition left against medical advice (07) ==
LOC: HO.ED 20:02
PROVIDERS: Emergency Provider Emergency Medicine
DX: Z46.89 Encounter for fitting and adjustment of other specified devices (principal)

== ENCOUNTER 2025-04-05 09:18 | Outpatient (REF) | payer MEDICAID, SELFPAY ==
--- NOTE | ~2025-04-05 | XR_ITS ---
CLINICAL HISTORY: M25.532 - Pain in left wrist Left wrist four views Comparison: None provided Findings: No acute fracture or dislocation identified. No acute focal bony abnormality. No radiopaque foreign body noted. Impression: No acute bony abnormality This document has been electronically signed by: Janusz Jordan MD on 04/05/2025 19:59:56
--- OUTSIDE RECORDS SUMMARY | 2025-04-06 09:59 | XMS_ITS | Clinical Summary ---
Author Organization [employer] [facility] ity Address [address] [place] [address] Care Team Providers Care Book Packer Name Role Phone Unavailable Primary Care Provider [...]
--- OUTSIDE RECORDS SUMMARY | 2025-04-06 09:59 | XMS_ITS | Clinical Summary ---
Author Organization [employer] Address [address] [facility] [address] [place] [address] Care Team Providers Care Dial Equipment Engineer Name Role Phone Unavailable Primary Care Provider [...]
== END 2025-04-05 09:19 | disposition home or self-care (01) ==
LOC: HO.HOSX 09:18
PROVIDERS: Visit Provider Orthopaedic Surgery
DX: S62.002A Unspecified fracture of navicular [scaphoid] bone of left wrist, initial encounter for closed fracture (principal); M25.532 Pain in left wrist; F17.290 Nicotine dependence, other tobacco product, uncomplicated; V29.99XA Rider (driver) (passenger) of other motorcycle injured in unspecified traffic accident, initial encounter
CPT/HCPCS: 73110; 99202

== ENCOUNTER 2025-04-05 10:28 | Outpatient (AMB) | payer MEDICAID, SELFPAY ==
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
[2025-04-05 10:47] VITALS: BMI 20.6
--- OUTSIDE RECORDS SUMMARY | 2025-04-05 11:51 | XMS_ITS | Clinical Summary ---
Author Organization [employer] [facility] ity Address [address] [place] [address] Care Team Providers Care Clarification Operator Name Role Phone Unavailable Primary Care Provider Unavailabl e Social History Tobacco Use Types Packs/Day Years Used Date Smoking Tobacco: Never Assessed Sex and Gender Information Value Date Recorded Sex Assigned at Not on file Legal Sex Male 1:03 PM EST Gender Identity Not on file Sexual Orientation Not on file Plan of Treatment Health Maintenance Due Date Last Done Comments DTaP,Tdap,and Td Vaccines (1 - Tdap) 2015 Hepatitis B Vaccines (1 of 3 - 19+ 3-dose series) 2015 COVID-19 Vaccine (2023-2 5 season) 2024 Depression Screening 08/18/2024 Influenza Vaccine (#1) 2025 HIB Vaccines Aged Out No longer eligi ble based on patient's age to complete this topic HPV Vaccines Aged Out No longer eligi ble based on patient's age to complete this topic Hepatitis A Vaccines Aged Out No long er eligible based on patient's age to complete this topic IPV Vaccines Aged Out No longer eligi ble based on patient's age to complete this topic MMR Vaccines Aged Out No longer eligi ble based on patient's age to complete this topic Meningococcal ACWY Vaccine Aged Out N o longer eligible based on patient's age to complete this topic Meningococcal B Vaccine Aged Out No l onger eligible based on patient's age to complete this topic Pneumococcal Vaccine: Pediat rics (0 to 5 Years) and At-Risk Patients (6 to 49 Years) Aged Out No longer eligible b ased on patient's age to complete this topic RSV Immunization Patients Un yaron 20 months Aged Out No longer eligible b ased on patient's age to complete this topic Varicella Vaccines Aged Out No longer eligible based on patient's age to complete this topic
--- OUTSIDE RECORDS SUMMARY | 2025-04-05 11:51 | XMS_ITS | Clinical Summary ---
Author Organization [employer] Address [address] [place] [address] Care Team Providers Care Farm Contractor Name Role Phone Unavailable Primary Care Provider [...]
== END 2025-04-05 11:41 | disposition home or self-care (01) ==
LOC: HO.HOS 10:29
PROVIDERS: Visit Provider Orthopaedic Surgery
DX: S62.002A Unspecified fracture of navicular [scaphoid] bone of left wrist, initial encounter for closed fracture (principal); F17.200 Nicotine dependence, unspecified, uncomplicated
CPT/HCPCS: 99204

== ENCOUNTER → 2025-04-05 10:32 | Outpatient (BNV) | payer MEDICAID, SELFPAY | PROVIDERS: Visit Provider Radiology Diagnostic Radiology | DX: M25.532 Pain in left wrist (principal) | CPT/HCPCS: 73110 ==

== ENCOUNTER 2025-04-14 07:33 | Day surgery (SDC) | payer MEDICAID, SELFPAY ==
[2025-04-12 07:25] VITALS: BMI 20.6
--- NOTE | 2025-04-12 15:13 | P.CONAN_ITS ---
Documented by User: Gosia Owens NP 04/12/25 15:13 HPI - Anesthesia Eval Consult details Narrative: 29yo M for Left Scaphoid ORIF PMFSH Active Problems Active Problems: All Active Problems Smoker (Acute) Fracture of scaphoid of left wrist (Acute) Past Medical History Medical History (Updated 04/05/25 @ 11:29 by Juan C Mcallister) COVID-19 Surgical History Surgical History (Updated 04/05/25 @ 10:55 by NORM Pollock) Hx of appendectomy Social History Social History (Updated 04/05/25 @ 10:55 by NORM Pollock) Patient Tobacco Use Status: Current everyday Tobacco user Use of substances other than those prescribed or required for medical reasons: Yes Substance Use Type: Marijuana Advance Directives: No Advance Directives Information Provided: Yes 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al status: employed 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: right 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/ [employer] Meds Allergies Allergy/AdvReac Type Severity Reaction Status Date / Time No Known Allergies Allergy Verified 04/05/25 10:53 Exam Height,Weight and Vital Signs: Height 5 ft 4 in Weight 54.431 kg Assessment and Plan Assessment Anesthesia Assessment: Chart Reviewed Documented by User: Ijeoma Banda MD 04/14/25 08:22 PMFSH Past Medical History Medical History (Updated 04/05/25 @ 11:29 by Juan C Mcallister) COVID-19 Family History Family history of problems with anesthesia: No Surgical History Surgical History (Updated 04/05/25 @ 10:55 by NORM Pollock) Hx of appendectomy History of Problems with Anesthesia: No Social History Social History (Updated 04/05/25 @ 10:55 by NORM Pollock) Patient Tobacco Use Status: Current everyday Tobacco user Use of substances other than those prescribed or required for medical reasons: Yes Substance Use Type: Marijuana Advance Directives: No Advance Directives Information Provided: Yes 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al status: employed 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: right 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/ [employer] Meds Allergies Allergy/AdvReac Type Severity Reaction Status Date / Time No Known Allergies Allergy Verified 04/05/25 10:53 Exam Airway Mallampati Class: II TM Dist: >3cm Neck ROM: Full Assessment and Plan Assessment Anesthesia Assessment: Anesthesia Plan Discussed Final Anesthetic Review Family History of Problems with Anesthesia: No History of Problems with Anesthesia: No NPO: Yes ASA Class: II Final Preanesthetic Review: No Changes in Pt Med Stat, Meds/Allgs Chart Reviewed, Consent Obtained/Reviewed and Anes Risks/Benef Reviewed Patient Risk: Low Procedure Risk: Low Anesthetic Plan Anesthetic Plan: GA Disposition: Standard PACU
[2025-04-14] VITALS (17 sets, daily range): BP systolic 91–124; BP diastolic 56–97; PULSE 61–81; RESP 14–20; TEMP 36.2–36.8; O2SAT 96–100
--- NOTE | ~2025-04-14 | FL_ITS ---
EXAMINATION: FL GUIDANCE ONLY HISTORY: Scaphoid ORIF (Left) COMPARISON: Correlation is made with plain films of the left wrist dated 04/05/2025. TECHNIQUE: Fluoroscopy time: 118.68 seconds. Cumulative Dose: 3.9065 mGy. DAP: 0.2361 mGym2 Images: 9. FINDINGS: Images demonstrate placement of a single screw in the scaphoid. FL/FL guidance in OR IMPRESSION: Fluoroscopy during procedure. Please see procedure report for additional information. Electronically signed by: Chris Stacy MD 04/14/2025 11:39 AM EDT
--- NOTE | 2025-04-14 07:36 | W.PM.OPN ---
Operative Note Operative Note Date of Service: 04/14/25 Narrative: Operative Note Narrative:? Preop diagnosis:? 1. left scaphoid waist fracture? Postop diagnosis:? Same Procedure:? 1. Left scaphoid fracture open reduction internal fixation? Surgeon:? Shala Issa MD Silk Blocker:? Jaren PETERS Anesthesia:? General Anesthesia? Findings:? Left scaphoid waist fracture Implants:? AcuTrak 2 mini headless compression screw 16 mm Tourniquet time:? 50 minutes EBL:? 5.0 ml Specimen:? None Drains:? None Complications:? None Disposition:? Brought to the recovery room in stable condition Plan:?? ? Follow-up in 10-14 days for wound check, suture removal, pre clinic radiographs and for placement in a short-arm thumb spica cast Indications:? The patient is a 29 year old man with? a left scaphoid waist fracture.? The risks and benefits of operative treatment, including but not limited to risk of damage to blood vessels, nerves, tendons, infection, recurrence, nonunion, persistent pain or numbness, incomplete resolution of preoperative symptoms, or need for further surgery were discussed with the patient and they wished to proceed with surgery. Procedure:? Once consent was obtained patient was brought back to the operating suite and placed in the operating table in a supine position.? A regional block was performed by the anesthesia team.? Perioperative antibiotics and anesthesia was administered by the anesthesia team.? A tourniquet was applied to the proximal aspect of the left upper extremity and the limb was prepped and draped in a standard surgical fashion.? The limb was elevated exsanguinated with Esmarch bandage and the tourniquet inflated to 250 mm of mercury for a total tourniquet time of 50 minutes.?? A 2 cm longitudinal incision was made extending from Javon's tubercle distally.? The incision was made through the skin to the subcutaneous tissues using a 15. Blade.? I then dissected down to the level of the extensor tendons and we passed between the 3rd and 4th dorsal compartments with care being taken to protect the EPL tendon and the tendons of the 4th dorsal compartment.? We passed between the 3rd and 4th dorsal compartments extending down to the level of the dorsal joint capsule.? The mini C-arm was used during the case to assist with implant placement and assessment of our fracture.? We used the mini C-arm to assure that we were directly over the scapholunate lunate interval, and the joint capsule was opened using a 15. Blade and tenotomy scissors under direct visualization.? At this point the wrist joint was visualized.? The proximal pole of the scaphoid was visualized as was the depression indicating the scapholunate ligament and interval.? The wrist was then brought into 45 degrees of flexion and ulnar deviation.? I then passed a guidewire from the AcuTrak 2 mini headless compression screw set into the proximal aspect of the scaphoid.? This was then advanced distally across the fracture site and into the distal pole of the scaphoid using the mini C-arm to evaluate its placement.? Once satisfied with the placement of the guidewire a 2nd guidewire was positioned as an anti rotation pin.? I then measured for the length of the screw, then subtracting 2 mm from each the proximal and distal poles to select a 16 mm headless compression screw.? The long slender cannulated Reamer was then used to ream over the guidewire and across the fracture site, and the mini C-arm was used to evaluate the depth of the Reamer.? A short fat cannulated Reamer was then used to open up the near cortex.? I then placed the 16 mm AcuTrak 2 mini headless compression screw, with good compression across the fracture site.? Care was taken to assure that the proximal end of the screw was placed beneath the articular cartilage and into the subchondral bone on multiple fluoroscopic images.? Once satisfied with our fracture reduction and implant placement final images were taken on the mini C-arm. ?At this point the tourniquet was deflated and hemostasis obtained with a brief period of local pressure and bipolar electrocautery.? The wound was copiously irrigated with normal saline.? The subcutaneous layer was closed with 4-0 Vicryl suture, and the skin edges were reapproximated with 5-0 nylon suture.? The wound was infiltrated with some 1% lidocaine with epinephrine for postop pain control and a sterile dressing and a short-arm thumb spica splint was applied.? The patient appears to have tolerated the procedure well and with no complications.? All digits were well vascularized conclusion of the case.
[2025-04-14] MEDS: Lactated Ringers 1,000 ML 100 ML IVCONT (08:05)
[2025-04-14 08:17] LABS: Cannabinoid Screen Urine POSITIVE (Not Detect)
--- NOTE | 2025-04-14 09:26 | MHC.SHP ---
Pre-Procedural Eval Section A - 24 Hr Update-Section A only Date of Service: 04/14/25 The patient is an INPATIENT: No Changes since office visit: No Cold of Flu in the past 2 weeks, No New Medical Problems, No Changes in Medication and No Patient answered all questions The patient has been examined within 24 hours of the surgical procedure. The History & Physical has been completed within 30 days and I have reviewed it.: Yes Section B - Complete if H&P > 30 days Chief Complaint: Unspecified fracture of navicular [scaphoid] bone Allergies: Allergies Allergy/AdvReac Type Severity Reaction Status Date / Time No Known Allergies Allergy Verified 04/05/25 10:53 Plan Diagnosis/Plan: Unchanged I have reviewed the history and physical and performed a pertinent physical examination on my patient. No changes have occurred unless specified. Time Spent With Patient Time: Total time managing care of this patient today ____ minutes.
[2025-04-14] MEDS: oxyCODONE HCl Immed Release 5 MG TABLET PO (12:45)
== END 2025-04-14 14:05 | disposition home or self-care (01) ==
PROVIDERS: Nurse Practitioner; Visit Provider Orthopaedic Surgery
PROC: (CPT 25628; principal; 2025-04-14 09:00)
DX: S62.002A Unspecified fracture of navicular [scaphoid] bone of left wrist, initial encounter for closed fracture (principal); M25.532 Pain in left wrist; V87.8XXA Person injured in other specified noncollision transport accidents involving motor vehicle (traffic), initial encounter; V29.99XA Rider (driver) (passenger) of other motorcycle injured in unspecified traffic accident, initial encounter; Y93.89 Activity, other specified; Y92.9 Unspecified place or not applicable; Y99.9 Unspecified external cause status
CPT/HCPCS: 25628; 80307; C1713; J0131; J0330; J0690; J1100; J2003; J2004; J2250; J2405; J2704; J3010

== ENCOUNTER → 2025-04-14 07:33 | Outpatient (BNV) | payer MEDICAID, SELFPAY | PROVIDERS: Visit Provider Orthopaedic Surgery | DX: S62.002A Unspecified fracture of navicular [scaphoid] bone of left wrist, initial encounter for closed fracture (principal) | CPT/HCPCS: 25628 ==

== ENCOUNTER 2025-04-21 11:39 | Outpatient (AMB) | payer MEDICAID, SELFPAY ==
--- NOTE | 2025-04-21 11:40 | MHC.OFFVIS ---
Intake Visit Reasons: P/O LT scaphoid FX ORIF 04/14/25 tight splint Intake Note: Harlan is a 29 year old male who presents today for a splint change status post left scaphoid fracture ORIF, DOS 04/14/25. Patient reports tightness around his thumb, as well as numbness and tingling. Allergies No Known Allergies Allergy (Verified 04/21/25 11:43) Medication List - Last Reconciled 04/21/25 by Mariana Mckeon PA-C amoxicillin-pot clavulanate 875-125 mg 1 tab PO BID 7 days hydrocodone-acetaminophen 5-325 mg 1 tab PO Q6H PRN HPI HPI P/O LT scaphoid FX ORIF 04/14/25 tight splint: Details: 29-year-old gentleman returns to the office today status post left scaphoid ORIF on 04/14/[address] Issa. He is complaining the splint is uncomfortable and causing pain along the incision site. 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 He did express understanding. He was placed in a custom thumb spica splint. He did ask for a refill of Vicodin which I did sent to the pharmacy to take 3 times a day. He will see us back for his routine postop on 04/27/[address] Issa. Medications: Changed From hydrocodone-acetaminophen 5-325 mg Partial Fill upon patient request. 1 tab PO Q6H PRN 25 tabs 0RF pain To hydrocodone-acetaminophen 5-325 mg Partial Fill upon patient request. 1 tab PO Q8H PRN 21 tabs 0RF pain Coding Level of Care Code Global (86972) Diagnoses Fracture of scaphoid of left wrist S62.002A CPT Codes Splint - CPT: 68086-[id number] Splint Application ([id number])
--- OUTSIDE RECORDS SUMMARY | 2025-04-21 13:19 | XMS_ITS | Clinical Summary ---
Author Organization [employer] [facility] ity Address [address] [place] [address] Care Team Providers Care Animal Ride Attendant Name Role Phone Unavailable Primary Care Provider [...]
--- OUTSIDE RECORDS SUMMARY | 2025-04-21 13:19 | XMS_ITS | Clinical Summary ---
Author Organization [employer] Address [address] [facility] [address] [place] [address] Care Team Providers Care Small Lot Operator Name Role Phone Unavailable Primary Care [...] COVID-19 Vaccine (1 - 2023-2 5 season) 2025 Influenza Vaccine (#1) 2025 Zoster Vaccines (1 [...]
== END 2025-04-21 12:48 | disposition home or self-care (01) ==
LOC: HO.HOS 11:40
PROVIDERS: Visit Provider Physician Assistant
DX: S62.002A Unspecified fracture of navicular [scaphoid] bone of left wrist, initial encounter for closed fracture (principal)
CPT/HCPCS: 29075; 99024

== ENCOUNTER → 2025-04-21 11:39 | Outpatient (BNVA) | payer MEDICAID, SELFPAY | PROVIDERS: Visit Provider Physician Assistant | DX: S62.002A Unspecified fracture of navicular [scaphoid] bone of left wrist, initial encounter for closed fracture (principal); X58.XXXA Exposure to other specified factors, initial encounter; Y93.9 Activity, unspecified; Y92.9 Unspecified place or not applicable; Y99.9 Unspecified external cause status | CPT/HCPCS: 29075; 99212 ==

== ENCOUNTER 2025-04-27 10:28 | Outpatient (REF) | payer MEDICAID, SELFPAY ==
--- NOTE | ~2025-04-27 | XR_ITS ---
EXAMINATION: XR WRIST NAVICULAR LEFT HISTORY: M25.532 - Pain in left wrist COMPARISON: Comparison is made to a prior examination dated 04/05/2025. FINDINGS: Four views of the left breast including a scaphoid view are submitted. Osseous mineralization is normal. The patient is status post placement of a single screw in the scaphoid. A fracture line in the scaphoid waist remains visible. There is no abnormal sclerosis of the scaphoid to suggest avascular necrosis. The joint spaces are preserved. The soft tissues are unremarkable. XR/XR wrist LT w scaphoid IMPRESSION: Internal fixation of a fracture of the scaphoid waist. Electronically signed by: Chris Stacy MD 04/27/2025 03:08 PM EDT
== END 2025-04-27 10:29 | disposition home or self-care (01) ==
LOC: HO.HOSX 10:28
PROVIDERS: Visit Provider Orthopaedic Surgery
DX: S62.002D Unspecified fracture of navicular [scaphoid] bone of left wrist, subsequent encounter for fracture with routine healing (principal); F17.200 Nicotine dependence, unspecified, uncomplicated; V29.99XD Rider (driver) (passenger) of other motorcycle injured in unspecified traffic accident, subsequent encounter
CPT/HCPCS: 73110; 99212

== ENCOUNTER 2025-04-27 14:20 | Outpatient (AMB) | payer MEDICAID, SELFPAY ==
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
--- OUTSIDE RECORDS SUMMARY | 2025-04-27 17:38 | XMS_ITS | Clinical Summary ---
Author Organization [employer] [facility] ity Address [address] [place] [address] Care Team Providers Care Director Strategy Name Role Phone Unavailable Primary Care Provider [...]
--- OUTSIDE RECORDS SUMMARY | 2025-04-27 17:38 | XMS_ITS | Clinical Summary ---
Author Organization [employer] Address [address] [place] [address] Care Team Providers Care Lead Project Manager Name Role Phone Unavailable Primary Care Provider [...]
== END 2025-04-27 15:55 | disposition home or self-care (01) ==
LOC: HO.HOS 14:20
PROVIDERS: Visit Provider Orthopaedic Surgery
DX: S62.002A Unspecified fracture of navicular [scaphoid] bone of left wrist, initial encounter for closed fracture (principal); F17.200 Nicotine dependence, unspecified, uncomplicated
CPT/HCPCS: 99024

== ENCOUNTER → 2025-04-27 14:28 | Outpatient (BNV) | payer MEDICAID, SELFPAY | PROVIDERS: Visit Provider Radiology Diagnostic Radiology | DX: M85.842 Other specified disorders of bone density and structure, left hand (principal) | CPT/HCPCS: 73110 ==

== ENCOUNTER 2025-05-09 15:33 | Outpatient (AMB) | payer MEDICAID, SELFPAY ==
[2025-05-09 15:37] VITALS: BMI 19.9
--- NOTE | 2025-05-09 15:37 | A.OFFVIS_ITS ---
Vital Signs 05/09/25 15:37 Height 5 ft 4 in Weight 116 lb BMI 19.9 Intake Visit Reasons: PO LT scaphoid ORIF 04/14/25 AR Intake Note: Harlan is a 29 year old right hand dominant male who presents today post- operatively for a cast change status post Left Scaphoid ORIF, DOS: 04/14/25, by Dr. Issa. He was last evaluated on 04/27/[address] Issa. At that time he was placed in a new thumb spica cast to be worn for 4 weeks. He was instructed to not lift anything heavier than a cellphone for 8-10 weeks. He was also educated on the importance of refraining from smoking and vaping. 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 He has not been able to return to work although he was placed on light duty with a 1 lb weight restriction until follow up, 05/25/25. Business Development Professional Required: No Allergies No Known Allergies Allergy (Verified 05/14/25 06:18) HPI HPI PO LT scaphoid ORIF 04/14/25 AR: Details: Harlan is a 29 year old right hand dominant male who presents today post- operatively for a cast change status post Left Scaphoid ORIF, DOS: 04/14/25, by Dr. Issa. He was last evaluated on 04/27/[address] Issa. At that time he was placed in a new thumb spica cast to be worn for 4 weeks. He was instructed t o not lift anything heavier than a cellphone for 8-10 weeks. He was also educated on the importance of refraining from smoking and vaping. 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 He has not been able to return to work although he was placed on light duty with a 1 lb weight restriction until follow up, 05/25/25. 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 Sutures removed and Steri-Strips applied at last visit He can make a fist and extend all his digits Sensation is intact Cap refill is brisk Psych Appearance: grossly normal Affect: normal affect Attitude: cooperative Office Procedures Casting/Splints 07206-Deoa/Wrist Cast Application Procedure code (CPT) selection complete Assessment & Plan Assessment & Plan (1) Fracture of scaphoid of left wrist: Code(s): S62.002A - Unspecified fracture of navicular [scaphoid] bone of left wrist, initial encounter for closed fracture Category: Medical (2) Smoker: Code(s): F17.200 - Nicotine dependence, unspecified, uncomplicated Category: Social Hx Plan 1. Status post left scaphoid ORIF DOS 04/14/2025 Thumb spica cast change today Patient is educated on proper cast care and precautions No evidence of skin breakdown or other concerning symptoms on skin check Patient should follow-up for previously scheduled appointment with Dr. Issa, sooner with any acute concerns Coding Level of Care Code Global (62818) Diagnoses Fracture of scaphoid of left wrist S62.002A Smoker F17.200 CPT Codes Casting - CPT: 53043-Sunv/Wrist Cast Application ([id number])
== END 2025-05-09 16:22 | disposition home or self-care (01) ==
LOC: HO.HOS 15:33
DX: S62.002A Unspecified fracture of navicular [scaphoid] bone of left wrist, initial encounter for closed fracture (principal); F17.200 Nicotine dependence, unspecified, uncomplicated
CPT/HCPCS: 29085; 99024

== ENCOUNTER → 2025-05-09 15:33 | Outpatient (BNVA) | payer MEDICAID, SELFPAY | DX: S62.002D Unspecified fracture of navicular [scaphoid] bone of left wrist, subsequent encounter for fracture with routine healing (principal); F17.200 Nicotine dependence, unspecified, uncomplicated | CPT/HCPCS: 29085; 99212 ==

== ENCOUNTER 2025-05-14 06:13 | Emergency (ER) | payer MEDICAID, SELFPAY ==
[2025-05-14 06:15] VITALS: BP 116/82; PULSE 88; RESP 16; TEMP 36.6; O2SAT 97; BMI 18.9
--- OUTSIDE RECORDS SUMMARY | 2025-05-14 06:31 | XMS_ITS | Clinical Summary ---
Author Organization [employer] [facility] ity Address [address] [place] [address] Care Team Providers Care Armature Winder Name Role Phone Unavailable Primary Care Provider [...] of 3 - 19+ 3-dose series) 2015 Depression Screening 08/18/2024 COVID-19 Vaccine (1 - 2023-2 5 season) 2025 Influenza Vaccine (#1) 2025 HIB Vaccines Aged [...]
--- OUTSIDE RECORDS SUMMARY | 2025-05-14 06:31 | XMS_ITS | Clinical Summary ---
Author Organization [employer] Address [address] [place] [address] Care Team Providers Care Manager Zone Name Role Phone Unavailable Primary Care Provider [...]
--- NOTE | 2025-05-14 07:18 | ED.GENADULT ---
HPI - General Adult General Chief complaint: General Medical Stated complaint: vomiting, consumed unknown substance Time Seen by Provider: 05/14/25 07:11 Source: patient and RN notes reviewed Mode of arrival: ambulatory Limitations: no limitations History of Present Illness ED Provider: JOURDAN Dorsey HPI narrative: 29-year-old male without medical history presents to the ED for 3 days of nausea and vomiting. Patient states yesterday a friend attempted to make him a homemade tea concoction for health which made his nausea and vomiting worse with epigastric abdominal pain starting after forceful and many episodes of vomiting. Patient reports many episodes of vomiting yesterday and overnight. Reports soft stools over this time period. Denies sick contacts or recent travel. Denies chest pain, SOB, black/tarry stool, urinary symptoms. MD complaint: abd pain, nausea, vomiting Related Data Previous Rx's ?Medication ?Instructions ?Recorded ondansetron HCl 4 mg tablet 4 mg PO DAILY PRN nausea and 05/14/25 vomiting #9 tabs Allergies Allergy/AdvReac Type Severity Reaction Status Date / Time No Known Allergies Allergy Verified 05/14/25 06:18 Review of Systems Review of Systems: CONST: Negative for fever, body aches and chills. HENT: Negative for neck pain/stiffness, headache, congestion, sore throat, swelling. EYES: Negative for discharge/pain or vision changes. RESP: Negative for cough/hemoptysis and shortness of breath. CV: Negative chest pain, difficulty breathing, palpitations. ABD: POS epigastric pain, nausea, vomiting. : Negative increase frequency, dysuria, blood in urine or stool. MUSC: Negative for muscle aches, edema. SKIN: Negative rash, lesions/sores. NEURO: Negative headache, dizziness, weakness. Yes all other systems are reviewed and are negative PMFSH Past Medical History Attestation statement: The following information was validated with the patient. 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 HEENT: ?NC, AT. MMM. EOMI, clear conjunctiva, oropharynx clear. NECK: ?Supple without lymphadenopathy.? No stiffness or restricted ROM. HEART:? Normal rate and regular rhythm, normal S1/S1, no m/r/g LUNGS:? CTAB, moving air well. No crackles or wheezes are heard. ABDOMEN: soft, nondistended, without rigidity, mild tenderness to palpation of the epigastric region, no overlying skin changes. Negative Zapata's sign, patient with a surgically absent appendix. BACK: No CVAT, no obvious deformity. EXTREMITIES: ?Without cyanosis, clubbing or edema. NEUROLOGICAL: ?Grossly nonfocal. Alert and oriented, moving all 4 extremities. Observed to ambulate with normal gait. Skin: ?Warm and dry without any rash. Course Reevaluation(s) Reevaluation #1: Patient failed PO challenge of crackers and apple juice, vomiting after eating. Patient states he does smoke marijuana daily. Suspect symptoms may be due to cannabis hyperemesis syndrome. Patient being medicated with additional L of fluids and droperidol to see if this relieves symptoms. Time: 10:12 Reevaluation #2: Patient experience some ?anxiety? with droperidol, gave 25 mg IV Benadryl with good effect of the symptoms. Patient states nausea, vomiting abdominal pain has subsided after being medicated with droperidol. At this time I believe symptoms may be due to cannabis hyperemesis syndrome versus viral syndrome. I reviewed this with the patient and explained pathophysiology. I counseled patient to discontinue marijuana at this time as it is probable this is causing his symptoms. No indication of advanced abdominal imaging today as patient is afebrile, without significant abdominal pain, no significant tenderness to palpation, with epigastric pain relieved after medication. No indication for stool sample today as patient describes stools not watery, is more soft in quality, with no recent antibiotic use, or recent travel. I counseled patient on strict return precautions, he does not have a primary care doctor at this time I will place referrals. Patient is in agreement with the plan. Time: 11:55 Medications Administered Discontinued Medications Generic Name Dose Route Start Last Admin Trade Name Bobbyq PRN Reason Stop Dose Admin Diphenhydramine HCl 25 mg 05/14/25 11:00 05/14/25 11:14 Diphenhydramine Hcl 50 Mg/Ml Vial IVPUSH 05/14/25 11:01 25 mg ONCE ONE Administration Droperidol 1.25 mg 05/14/25 10:09 05/14/25 10:22 Droperidol 5 Mg/2 Ml Vial IVPUSH 05/14/25 10:10 1.25 mg ONCE ONE Administration Lactated Ringer's 1,000 mls @ 999 mls/hr 05/14/25 07:18 05/14/25 08:29 Lr IV 05/14/25 08:18 Infused .Q1H1M ONE Infusion Lactated Ringer's 1,000 mls @ 999 mls/hr 05/14/25 07:20 05/14/25 09:30 Lr IV 05/14/25 08:20 Infused .Q1H1M ONE Infusion Lactated Ringer's 1,000 mls @ 999 mls/hr 05/14/25 10:09 05/14/25 11:19 Lr IV 05/14/25 11:09 Infused .Q1H1M ONE Infusion Ondansetron HCl 4 mg 05/14/25 07:18 05/14/25 07:52 Ondansetron Hcl 4 Mg/2 Ml Vial IVPUSH 05/14/25 07:19 4 mg ONCE ONE Administration Pantoprazole Sodium 40 mg 05/14/25 07:19 05/14/25 07:52 Pantoprazole Sodium 40 Mg/10 Ml Vial IVPUSH 05/14/25 07:20 40 mg ONCE ONE Administration Medical Decision Making Medical Decision Making MDM Narrative: 29-year-old male without medical history presents to the ED for 3 days of nausea and vomiting that became worse yesterday after drinking a home concocted health tea, epigastric abd pain began last night after many episodes of forceful vomiting, no hematemesis, or hematochezia. No history of alcohol use. Surgical history of appendectomy. VS on initial observation-BP 116/82, pulse rate of 88, respiratory rate of 16, afebrile with oral temp of 97.9?, O2 saturation 97% on room air. On physical exam abdomen is soft, nondistended, without rigidity, mild tenderness to palpation of the epigastric region, no overlying skin changes. Negative Zapata's sign, patient with a surgically absent appendix. Labs reveal leukocytosis of 13.7, H&H is stable, no electrolyte abnormality, lipase WNL, total bilirubin WNL. Viral serology negative. Patient's nausea, vomiting and epigastric pain has improved considerably after being medicated with IV fluids, 40 mg IV pantoprazole, and 4 mg IV Zofran. Differential Diagnosis Differential Diagnoses: The differential diagnosis associated with the presentation includes Viral illness COVID Flu Gastritis Admission/Observation Consideration of admission/observation: Escalation of care including admission/observation considered Lab Data MDM Lab Attestation statement: I reviewed the patient's lab results. 05/14/25 07:51 05/14/25 07:51 Labs: Lab Results 05/14/25 Range/Units 07:51 WBC 13.7 H (4.8-10.8) X10*3/uL RBC 5.02 (4.60-5.80) X10*6/uL Hgb 14.4 (14.0-18.0) g/dl Hct 41.6 L (42.0-52.0) % MCV 82.9 (80.0-98.0) fL MCH 28.7 (27.0-33.0) pg MCHC 34.6 (31.0-36.0) g/dl RDW 11.9 (11.0-16.0) % Plt Count 244 (160-400) X10*3/uL MPV 9.5 (9.4-12.4) fL Immature Gran % (Auto) 0.4 (0.0-0.4) % Neut % (Auto) 81.8 H (45-73) % Lymph % (Auto) 9.3 L (20-40) % [place] % (Auto) 8.2 (2-11) % Eos % (Auto) 0.0 (0-4) % Baso % (Auto) 0.3 (0-2) % Lymph # (Auto) 1.3 (1.2-4.9) X10*3/uL [place] # (Auto) 1.1 (0.1-1.2) X10*3/uL Eos # (Auto) 0.0 (0.0-0.4) X10*3/uL Baso # (Auto) 0.0 (0.0-0.2) X10*3/uL Abs Immat Gran (auto) 0.05 H (0.00-0.03) X10*3/uL Absolute Neuts (auto) 11.2 H (2.0-8.3) x10*3/uL Absolute Nucleated RBC 0.000 (0.0-0.012) X10*3/uL Nucleated RBC % (auto) 0.0 (0.0-0.2) /100WBC Sodium 145 (135-145) mmol/L Potassium 3.7 (3.3-5.1) mmol/L Chloride 109 H (96-108) mmol/L Carbon Dioxide 28 (22-29) mmol/L Anion Gap 12 (12-20) BUN 7 L (9-16) mg/dL Creatinine 0.81 (0.5-1.4) mg/dL Estim Creat Clear Calc 95.8 Estimated GFR > 60 Random Glucose 98 (60-115) mg/dL Calcium 9.4 (8.4-10.2) mg/dL Magnesium 2.2 (1.6-2.6) mg/dL Total Bilirubin 0.3 (0.0-1.0) mg/dL AST 17 (5-37) U/L ALT 13 (0-40) U/L Alkaline Phosphatase 114 (39-117) U/L Total Protein 7.0 (6.5-8.0) g/dL Albumin 4.6 (3.5-5.0) g/dL Lipase 14 (8-78) U/L COVID-19 (SHANA) Negative (Negative) COVID-19 Clin Com See Note Influenza Type A (LIZET) Negative (Negative) Influenza Type B (LIZET) Negative (Negative) Influenza A & B Note See Note External Record Review External record reviewed: Inpatient record, Office record and Outpatient record Chronic Conditions Patient?s care impacted by: Other (No known medical history) Discharge Plan Discharge Clinical Impression: Nausea & vomiting Patient Disposition: Home, Self-Care Additional Instructions: You were evaluated in the emergency department for nausea, vomiting and abdominal pain. Your lab work showed a very mild increase in your white blood cell count that is most likely due to vomiting, no evidence of anemia, or electrolyte imbalance today. Your physical exam was reassuring as your abdomen was soft, nondistended. Your symptoms improved considerably after being medicated with IV fluids, Zofran, droperidol and benadryl. This is most consistent with cannabis hyperemesis syndrome. Please stop smoking marijuana at this time to see if your symptoms are relieved. Stay hydrated with sports drinks such as Gatorade, Powerade or Pedialyte. Eat a bland diet including toast, bananas, rice, broths, and advance as tolerated as your symptoms improve. Please return to the emergency department if you experience fevers over 100.4? that are not managed by Tylenol/Motrin, worsening abdominal pain, worsening vomiting, blood in the vomit, or any new/worsening/concerning symptoms. Prescriptions: New ondansetron HCl 4 mg tablet 4 mg PO DAILY PRN (Reason: nausea and vomiting) Qty: 9 0RF Interventions: ED Discharge Assessment Last Done: 05/14/25 12:08 Discharge Date/Time: 05/14/25 12:08 Print Language: Ukrainian
[2025-05-14] MEDS: Lactated Ringers 1,000 ML 999 ML IV ×3 (07:52→10:22)
--- NOTE | 2025-05-14 07:55 | PC.NURSE ---
no active vomiting axox3. skin pwd. states he's had carple pedal spasms. calmer now. aware ofplan of care.
[2025-05-14 08:02] LABS: MANUAL DIFF FLAG NO
[2025-05-14 08:09] LABS: Hematocrit 41.6 % (42.0-52.0); Hemoglobin 14.4 g/dl (14.0-18.0); Imm Gran Abs Auto 0.05 X10*3/uL (0.00-0.03); Imm Gran Pct Auto 0.4 % (0.0-0.4); Lymphocytes Absolute Auto 1.3 X10*3/uL (1.2-4.9); Mean Corpuscular HGB Conc 34.6 g/dl (31.0-36.0); Mean Corpuscular Hemoglobin 28.7 pg (27.0-33.0); Mean Corpuscular Volume 82.9 fL (80.0-98.0); NRBC Abs Auto 0.000 X10*3/uL (0.0-0.012); NRBC Pct Auto 0.0 /100WBC (0.0-0.2); Platelet Count 244 X10*3/uL (160-400); Red Blood Count 5.02 X10*6/uL (4.60-5.80); White Blood Count 13.7 X10*3/uL (4.8-10.8)
[2025-05-14 08:22] LABS: Alanine Aminotransferase 13 U/L (0-40); Albumin Level 4.6 g/dL (3.5-5.0); Alkaline Phosphatase 114 U/L (39-117); Anion Gap 12 (12-20); Aspartate Amino Transferase 17 U/L (5-37); Blood Urea Nitrogen 7 mg/dL (9-16); Calcium 9.4 mg/dL (8.4-10.2); Carbon Dioxide 28 mmol/L (22-29); Chloride 109 mmol/L (96-108); Creatinine Clr Calc Pharmacy 95.8; Estimated Glomerular Filt Rate > 60; Lipase 14 U/L (8-78); Magnesium 2.2 mg/dL (1.6-2.6); Potassium 3.7 mmol/L (3.3-5.1); Sodium 145 mmol/L (135-145); Total Protein 7.0 g/dL (6.5-8.0)
[2025-05-14 08:32] LABS: COVID-19 Test Negative (Negative); IDNOW Serial# 55D5AD1C; IDNOW Serial# 58CA691E; Influenza B2 Negative (Negative)
[2025-05-14 09:11] VITALS: BP 125/72; PULSE 81; RESP 16; TEMP 36.6; O2SAT 99
--- NOTE | 2025-05-14 10:27 | PC.NURSE ---
Pt had been feeling better and passed PO challenged. Was about to be discharged and vomited again. Not resting with IV fluids running and additional MEds.
[2025-05-14 12:08] VITALS: BP 125/72; PULSE 81; RESP 16; TEMP 36.6; O2SAT 99
== END 2025-05-14 12:08 | disposition home or self-care (01) ==
PROVIDERS: Emergency Provider Emergency Medicine Emergency Medical Services
DX: R11.2 Nausea with vomiting, unspecified (principal); R10.2 Pelvic and perineal pain; Z11.52 Encounter for screening for COVID-19; Z79.899 Other long term (current) drug therapy
CPT/HCPCS: 36415; 80053; 83690; 83735; 85025; 87502; 87635; 96361; 96374; 96375; 99284; J1200; J1790; J2405; J2470; J7120

== ENCOUNTER 2025-05-24 12:58 | Outpatient (REF) | payer MEDICAID, SELFPAY ==
--- NOTE | ~2025-05-24 | XR_ITS ---
EXAMINATION: XR WRIST, LEFT CLINICAL INFORMATION: M25.532 - Pain in left wrist COMPARISON: X-ray 04/27/2025 TECHNIQUE: Four views of the left wrist. FINDINGS: Status post internal fixation with screw positioned in the scaphoid. Intact hardware. No suspicious perihardware lucency. Decreased conspicuity of the scaphoid waist fracture plane. No abnormal sclerosis of the scaphoid to suggest avascular necrosis. Scapholunate distance is maintained. No significant joint space narrowing. XR/XR wrist LT w scaphoid IMPRESSION: Findings suggesting healing changes in the scaphoid waist fracture status post internal fixation. Electronically signed by: David Berkowitz MD 05/25/2025 04:32 PM EDT
--- OUTSIDE RECORDS SUMMARY | 2025-05-24 15:53 | XMS_ITS | Clinical Summary ---
Author Organization [email or web address] [facility] ity Address [address] [place] [address] Care Team Providers Care Echo Tech Name Role Phone Unavailable Primary Care Provider [...] of 3 - 19+ 3-dose series) 2015 HPV Vaccines (1 - 3-dose SCD M series) 2023 Depression Screening 08/18/2024 COVID-19 Vaccine (1 - 2023-2 5 season) 2025 Influenza Vaccine (#1) 2025 RSV Immunization Adult Patie nts (1 - 1-dose 75+ series) 2071 HIB [...]
--- OUTSIDE RECORDS SUMMARY | 2025-05-24 15:53 | XMS_ITS | Clinical Summary ---
Author Organization [employer] Address [address] [place] [address] Care Team Providers Care Linux Admin Engineer Name Role Phone Unavailable Primary Care [...]
== END 2025-05-24 12:59 | disposition home or self-care (01) ==
LOC: HO.HOSX 12:58
PROVIDERS: Visit Provider Orthopaedic Surgery
DX: M25.532 Pain in left wrist (principal)
CPT/HCPCS: 73110

== ENCOUNTER 2025-05-25 14:42 | Outpatient (AMB) | payer MEDICAID, SELFPAY ==
[2025-05-25 15:15] VITALS: BMI 18.9
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
== END 2025-05-25 16:07 | disposition home or self-care (01) ==
LOC: HO.HOS 14:42
PROVIDERS: Visit Provider Orthopaedic Surgery
DX: S62.002A Unspecified fracture of navicular [scaphoid] bone of left wrist, initial encounter for closed fracture (principal); F17.200 Nicotine dependence, unspecified, uncomplicated
CPT/HCPCS: 99024

== ENCOUNTER → 2025-05-25 14:42 | Outpatient (BNVA) | payer MEDICAID, SELFPAY | PROVIDERS: Visit Provider Orthopaedic Surgery | DX: M25.532 Pain in left wrist (principal); S62.002D Unspecified fracture of navicular [scaphoid] bone of left wrist, subsequent encounter for fracture with routine healing; Z98.890 Other specified postprocedural states | CPT/HCPCS: 99212 ==

== ENCOUNTER → 2025-05-25 14:56 | Outpatient (BNV) | payer MEDICAID, SELFPAY | PROVIDERS: Visit Provider Radiology Diagnostic Ultrasound | DX: M25.532 Pain in left wrist (principal) | CPT/HCPCS: 73110 ==

== ENCOUNTER 2025-06-13 13:06 | Outpatient (AMB) | payer MEDICAID, SELFPAY ==
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
[2025-06-13 13:26] VITALS: BMI 18.9
--- OUTSIDE RECORDS SUMMARY | 2025-06-13 16:39 | XMS_ITS | Clinical Summary ---
Author Organization [facility] ity Address [address] [place] [address] Care Team Providers Care Political Science Faculty Member Name Role Phone Unavailable Primary Care Provider [...]
== END 2025-06-13 14:18 | disposition home or self-care (01) ==
LOC: HO.HOS 13:07
PROVIDERS: Visit Provider Physician Assistant
DX: S62.002A Unspecified fracture of navicular [scaphoid] bone of left wrist, initial encounter for closed fracture (principal); F17.200 Nicotine dependence, unspecified, uncomplicated
CPT/HCPCS: 29075; 99024

== ENCOUNTER → 2025-06-13 13:06 | Outpatient (BNVA) | payer MEDICAID, SELFPAY | PROVIDERS: Visit Provider Physician Assistant | DX: S62.002D Unspecified fracture of navicular [scaphoid] bone of left wrist, subsequent encounter for fracture with routine healing (principal); V28.09XD Other motorcycle driver injured in noncollision transport accident in nontraffic accident, subsequent encounter | CPT/HCPCS: 29085; 99212 ==

== ENCOUNTER 2025-06-21 10:26 | Outpatient (AMB) | payer MEDICAID, SELFPAY ==
[2025-06-21 11:19] VITALS: BMI 18.9
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
--- OUTSIDE RECORDS SUMMARY | 2025-06-21 12:14 | XMS_ITS | Clinical Summary ---
Author Organization [facility] ity Address [address] [place] [address] Care Team Providers Care Guitar Maker Hand Name Role Phone Unavailable Primary Care [...] complete this topic RSV Immunization Patients Un ayron 20 months Aged Out No longer eligible b ased on patient's age to complete this topic Varicella Vaccines Aged Out No longer eligible based on patient's age to complete this topic
--- OUTSIDE RECORDS SUMMARY | 2025-06-21 12:14 | XMS_ITS | Clinical Summary ---
Author Organization [employer] Address [address] [place] [address] Care Team Providers Care Field Worker Name Role Phone Unavailable Primary Care Provider [...]
== END 2025-06-21 12:36 | disposition home or self-care (01) ==
LOC: HO.HOS 10:26
PROVIDERS: Visit Provider Orthopaedic Surgery
DX: S62.002A Unspecified fracture of navicular [scaphoid] bone of left wrist, initial encounter for closed fracture (principal); F17.200 Nicotine dependence, unspecified, uncomplicated
CPT/HCPCS: 99024

== ENCOUNTER 2025-06-21 10:26 | Outpatient (REF) | payer MEDICAID, SELFPAY ==
--- NOTE | ~2025-06-21 | XR_ITS ---
EXAMINATION: XR WRIST, LEFT CLINICAL INFORMATION: M25.532 - Pain in left wrist COMPARISON: Prior x-rays including 05/25/2025 TECHNIQUE: Four views of the left wrist. FINDINGS: Status post internal fixation with screw positioned in the scaphoid. There is a subtle lucency in the bone adjacent to the distal tip of the screw. Fracture plane is not clearly visualized, suggesting healing progression. There is mild sclerosis in the proximal scaphoid, attention on follow-up imaging. Scapholunate distance is maintained. Radiocarpal alignment is maintained. No new acute fracture is seen. XR/XR wrist LT w scaphoid IMPRESSION: 1. Status post internal fixation of the scaphoid. Fracture plane is not clearly visualized, suggesting healing progression. 2. Mild sclerosis in the proximal scaphoid, only seen on one view, attention on follow-up imaging. 3. Subtle lucency in the bone along the distal tip of the screw, attentional on follow-up imaging. Electronically signed by: David Berkowitz MD 06/22/2025 10:10 AM [facility]
== END 2025-06-21 10:27 | disposition home or self-care (01) ==
LOC: HO.HOSX 10:26
PROVIDERS: Visit Provider Orthopaedic Surgery
DX: S62.002D Unspecified fracture of navicular [scaphoid] bone of left wrist, subsequent encounter for fracture with routine healing (principal); F17.200 Nicotine dependence, unspecified, uncomplicated; V28.49XD Other motorcycle driver injured in noncollision transport accident in traffic accident, subsequent encounter
CPT/HCPCS: 73110; 99212

== ENCOUNTER → 2025-06-21 11:52 | Outpatient (BNV) | payer MEDICAID, SELFPAY | PROVIDERS: Visit Provider Radiology Diagnostic Ultrasound | DX: M25.532 Pain in left wrist (principal) | CPT/HCPCS: 73110 ==